=== PATIENT | female | born 2000 | race Caucasian/White ===

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

== ENCOUNTER 2019-01-04 11:49 | Outpatient (CLI) | payer OTHER | END 2019-01-04 12:33 | disposition home or self-care (01) | LOC: ORTHO 11:49 | PROVIDERS: ATTEND Orthopaedic Surgery | DX: S99.921A Unspecified injury of right foot, initial encounter (principal); X58.XXXA Exposure to other specified factors, initial encounter; Y93.89 Activity, other specified; Y92.89 Other specified places as the place of occurrence of the external cause; Y99.8 Other external cause status | CPT/HCPCS: 73630; G0463 ==

== ENCOUNTER 2019-04-22 02:45 | Emergency (ER) | payer OTHER ==
[~2019-04-22] VITALS: Ht 162.6 cm; Wt 65.0 kg
[2019-04-22 02:49] VITALS: BP 144/86
[2019-04-22 03:04] LABS: URINE HCG NEGATIVE (NEG)
[2019-04-22 03:05] LABS: CLARITY,URINE SLIGHTLY CLOUDY (Clear); COLOR,URINE YELLOW (Yellow); GLUCOSE, URINE NEGATIVE (Neg); KETONES,URINE NEGATIVE (Neg); LEUKOCYTE ESTERASE ,URINE SMALL (Neg); NITRITES, URINE NEGATIVE (Neg); OCCULT BLOOD,URINE SMALL (Neg); PROTEIN,URINE NEGATIVE (Neg)
[2019-04-22 03:14] LABS: MUCUS STRANDS MODERATE /LPF (Neg); SQUAMOUS EPITHELIAL CELL,UR MODERATE /LPF (FEW); UA COLLECTION TYPE CLN CATCH MIDSTREAM
[2019-04-22 03:15] LABS: BACTERIA,URINE FEW /HPF (Neg); RBC,URINE 0-2 /HPF (0-2); TRANSITIONAL EPI CELLS,URINE FEW /HPF
[2019-04-22] MEDS ORDERED: phenazopyridine 100mg tablet PO ONE (03:20)
[2019-04-22] MEDS ORDERED: cephalexin 250mg capsule PO ONE (03:20)
[2019-04-22] MEDS ORDERED: CEPH500C5 PO (03:32)
[2019-04-22] MEDS ORDERED: PHEN-786 PO (03:32)
== END 2019-04-22 03:53 | disposition home or self-care (01) ==
LOC: ER 02:45
DX: N39.0 Urinary tract infection, site not specified (principal); M19.90 Unspecified osteoarthritis, unspecified site; F41.9 Anxiety disorder, unspecified; Z86.69 Personal history of other diseases of the nervous system and sense organs; Z79.2 Long term (current) use of antibiotics; Z79.899 Other long term (current) drug therapy
CPT/HCPCS: 81001; 81025; 87088; 99283

== ENCOUNTER 2019-08-21 20:57 | Outpatient (CLI) | payer OTHER ==
[~2019-08-21 20:57] MED LIST changes: +CEPH500C5 PO; +PHEN-786 PO
== END 2019-08-21 23:59 | disposition home or self-care (01) ==
LOC: LAB 20:57
PROVIDERS: ATTEND Family Medicine
DX: N30.90 Cystitis, unspecified without hematuria (principal); R11.0 Nausea
CPT/HCPCS: 36415; 84702

== ENCOUNTER 2019-09-03 04:24 | Emergency (ER) | payer OTHER ==
[~2019-09-03] VITALS: Ht 162.6 cm; Wt 61.4 kg
[2019-09-03] MEDS ORDERED: ondansetron 4mg rapidly disintigrating tab PO ONE (04:30)
[2019-09-03] MEDS ORDERED: ketorolac trometh inj. 60 MG/2 ML VIAL IM ONE (04:30)
[2019-09-03 05:03] LABS: BASOPHILS # (AUTO) 0.1 X10'3 (0-0.2); BASOPHILS % (AUTO) 0.5 % (0-1); EOSINOPHILS # (AUTO) 0.2 X10'3 (0-0.9); EOSINOPHILS % (AUTO) 2.1 % (0-6); HEMOGLOBIN 14.6 g/dl (12.0-16.0); LYMPHOCYTES # (AUTO) 3.6 X10'3 (1.1-4.8); LYMPHOCYTES % (AUTO) 31.4 % (21-51); MEAN CORPUSCULAR HEMOGLOBIN 29.3 PG (27.0-31.0); MEAN CORPUSCULAR HGB CONC 33.9 g/dL (33.0-36.5); MEAN CORPUSCULAR VOLUME 86.4 FL (78-98); MEAN PLATELET VOLUME 7.2 FL (7.4-10.4); MONOCYTES # (AUTO) 0.9 X10'3 (0-0.9); NEUTROPHILS # (AUTO) 6.6 X10'3 (1.8-7.7); PLATELET COUNT 420 X10'3 (140-440); RED BLOOD COUNT 4.97 X10'6 (4.20-5.60); RED CELL DISTRIBUTION WIDTH 13.5 % (11.5-14.5); URINE HCG NEGATIVE (NEG); WHITE BLOOD COUNT 11.4 X10'3 (4.5-11.0)
[2019-09-03 05:24] LABS: CLARITY,URINE CLEAR (Clear); COLOR,URINE YELLOW (Yellow); GLUCOSE, URINE NEGATIVE (Neg); KETONES,URINE NEGATIVE (Neg); LEUKOCYTE ESTERASE ,URINE NEGATIVE (Neg); NITRITES, URINE NEGATIVE (Neg); OCCULT BLOOD,URINE NEGATIVE (Neg); PROTEIN,URINE NEGATIVE (Neg); UROBILINOGEN,URINE 0.2 E.U/dL (0.2-1.0)
[2019-09-03] MEDS ORDERED: mag hydrox/Alum hydrox/simeth 30ml oral suspension PO ONE (05:25)
[2019-09-03] MEDS ORDERED: LIDOcaine Viscous 15ml cup MM ONE (05:25)
[2019-09-03] MEDS ORDERED: famotidine 20mg tablet PO ONE (05:25)
[2019-09-03 05:26] LABS: ALANINE AMINOTRANSFERASE 21 U/L (12-78); ALBUMIN 4.9 G/DL (3.4-5.0); ALBUMIN/GLOBULIN RATIO 1.2 (1.1-1.5); ANION GAP 9 (8-16); ASPARTATE AMINO TRANSFERASE 18 U/L (10-37); BILIRUBIN,TOTAL 0.3 MG/DL (0.1-1.0); BLOOD UREA NITROGEN 7 MG/DL (7-18); BUN/CREATININE RATIO 8.6 (6.6-38.0); CALCIUM 9.5 MG/DL (8.5-10.1); CHLORIDE 103 MMOL/L (99-107); CREATININE 0.81 MG/DL (0.40-0.90); GLUCOSE 89 MG/DL (70-104); POTASSIUM 3.4 MMOL/L (3.5-5.1); SODIUM 143 MMOL/L (135-145); TOTAL CARBON DIOXIDE 31.1 MMOL/L (24-32); TOTAL PROTEIN 9.1 G/DL (6.4-8.2); eGFR 90 ML/MIN
[2019-09-03 05:27] LABS: ALKALINE PHOSPHATASE 77 IU/L (20-180); MAGNESIUM 2.4 MG/DL (1.5-2.4)
[2019-09-03 05:31] LABS: UA COLLECTION TYPE CLN CATCH MIDSTREAM
[2019-09-03 05:52] VITALS: BP 127/83
== END 2019-09-03 05:58 | disposition home or self-care (01) ==
LOC: ER 04:25 → EEVIPCON 04:25 → ER 05:58
DX: R07.89 Other chest pain (principal); R06.02 Shortness of breath; R11.0 Nausea; M19.90 Unspecified osteoarthritis, unspecified site; F41.9 Anxiety disorder, unspecified; Z86.69 Personal history of other diseases of the nervous system and sense organs; Z79.899 Other long term (current) drug therapy
CPT/HCPCS: 36415; 71045; 80053; 81003; 81025; 83735; 84484; 85025; 93005; 96372; 99285; J1885

== ENCOUNTER 2019-09-10 20:43 | Emergency (ER) | payer OTHER ==
[~2019-09-10] VITALS: Ht 162.6 cm; Wt 61.4 kg
[2019-09-10] MEDS ORDERED: ketorolac trometh. 30mg/ml inj. IM ONE (21:10)
[2019-09-10] MEDS ORDERED: IBUP-1985 PO (21:16)
[2019-09-10 21:30] VITALS: BP 125/52
== END 2019-09-10 21:31 | disposition home or self-care (01) ==
LOC: ER 20:45 → EEVIPCON 20:45 → ER 21:31
DX: S43.51XA Sprain of right acromioclavicular joint, initial encounter (principal); M06.9 Rheumatoid arthritis, unspecified; Z79.899 Other long term (current) drug therapy; W18.30XA Fall on same level, unspecified, initial encounter; Y93.89 Activity, other specified; Y92.89 Other specified places as the place of occurrence of the external cause; Y99.9 Unspecified external cause status
CPT/HCPCS: 73030; 96372; 99283; J1885

== ENCOUNTER 2019-12-01 02:46 | Emergency (ER) | payer OTHER ==
[~2019-12-01] VITALS: Ht 162.6 cm; Wt 63.6 kg
[~2019-12-01 02:46] MED LIST changes: +IBUP-1985 PO
[2019-12-01] MEDS ORDERED: ondansetron/PF 4mg/2ml inj IV ONE (02:55)
[2019-12-01] MEDS ORDERED: normal saline 1000ML IV soln IVB ONE (02:55)
[2019-12-01] MEDS: morphine 4 MG/ML inj SYRINge IV PRN ×2 (03:06→05:00)
[2019-12-01 03:11] LABS: BASOPHILS % (AUTO) 0.4 % (0-1); EOSINOPHILS # (AUTO) 0.1 X10'3 (0-0.9); EOSINOPHILS % (AUTO) 1.2 % (0-6); LYMPHOCYTES # (AUTO) 2.8 X10'3 (1.1-4.8); LYMPHOCYTES % (AUTO) 25.1 % (21-51); MEAN CORPUSCULAR HEMOGLOBIN 29.8 PG (27.0-31.0); MEAN CORPUSCULAR HGB CONC 33.5 g/dL (33.0-36.5); MEAN CORPUSCULAR VOLUME 89.1 FL (78-98); MEAN PLATELET VOLUME 7.3 FL (7.4-10.4); MONOCYTES # (AUTO) 0.7 X10'3 (0-0.9); MONOCYTES % (AUTO) 6.8 % (2-12); NEUTROPHILS # (AUTO) 7.3 X10'3 (1.8-7.7); NEUTROPHILS % (AUTO) 66.5 % (42-75); PLATELET COUNT 367 X10'3 (140-440); RED BLOOD COUNT 4.38 X10'6 (4.20-5.60); RED CELL DISTRIBUTION WIDTH 12.9 % (11.5-14.5)
[2019-12-01 03:21] LABS: ALANINE AMINOTRANSFERASE 21 U/L (12-78); ALBUMIN 4.3 G/DL (3.4-5.0); ALBUMIN/GLOBULIN RATIO 1.2 (1.1-1.5); ALKALINE PHOSPHATASE 56 IU/L (20-180); ANION GAP 5 (8-16); ASPARTATE AMINO TRANSFERASE 14 U/L (10-37); BILIRUBIN,TOTAL 0.4 MG/DL (0.1-1.0); BLOOD UREA NITROGEN 11 MG/DL (7-18); BUN/CREATININE RATIO 10.7 (6.6-38.0); CHLORIDE 106 MMOL/L (99-107); CREATININE 1.03 MG/DL (0.40-0.90); GLUCOSE 86 MG/DL (70-104); LIPASE 106 U/L (73-393); POTASSIUM 3.5 MMOL/L (3.5-5.1); SODIUM 142 MMOL/L (135-145); TOTAL CARBON DIOXIDE 30.9 MMOL/L (24-32); TOTAL PROTEIN 7.8 G/DL (6.4-8.2); eGFR 68 ML/MIN
[2019-12-01 03:47] LABS: URINE HCG NEGATIVE (NEG)
[2019-12-01 03:53] LABS: CLARITY,URINE SLIGHTLY CLOUDY (Clear); COLOR,URINE YELLOW (Yellow); GLUCOSE, URINE NEGATIVE (Neg); KETONES,URINE NEGATIVE (Neg); LEUKOCYTE ESTERASE ,URINE TRACE (Neg); NITRITES, URINE NEGATIVE (Neg); OCCULT BLOOD,URINE NEGATIVE (Neg); PROTEIN,URINE NEGATIVE (Neg); UA COLLECTION TYPE CLN CATCH MIDSTREAM; UROBILINOGEN,URINE 0.2 E.U/dL (0.2-1.0)
[2019-12-01 03:57] LABS: BACTERIA,URINE 2+ /HPF (Neg); RBC,URINE NONE SEEN /HPF (0-2); SQUAMOUS EPITHELIAL CELL,UR MODERATE /LPF (FEW); WBC,URINE 0-4 /HPF (0-4)
[2019-12-01] MEDS ORDERED: ONDA4TAB6 PO (04:37)
[2019-12-01] MEDS ORDERED: HYDR-3965 PO (04:37)
[2019-12-01] MEDS ORDERED: DICY10CA88 PO (04:43)
[2019-12-01 05:05] VITALS: BP 110/76
[2019-12-01] MEDS ORDERED: ondansetron 4mg rapidly disintigrating tab PO ONE (06:40)
[2019-12-01] MEDS ORDERED: CefTRIAXone 250MG IM Kit w/LIDOcaine IM ONE (07:05)
[2019-12-01] MEDS ORDERED: azithromycin 250mg tablet PO ONE (07:05)
[2019-12-01] MEDS ORDERED: IBUP-1984 PO (23:58)
== END 2019-12-01 08:01 | disposition home or self-care (01) ==
LOC: ER 02:46
DX: R10.31 Right lower quadrant pain (principal); R11.2 Nausea with vomiting, unspecified; M19.90 Unspecified osteoarthritis, unspecified site; F41.9 Anxiety disorder, unspecified; F32.9 Major depressive disorder, single episode, unspecified; M06.9 Rheumatoid arthritis, unspecified; Z86.69 Personal history of other diseases of the nervous system and sense organs; Z79.899 Other long term (current) drug therapy
CPT/HCPCS: 36415; 74176; 80053; 81001; 81025; 83690; 85025; 87088; 87491; 87591; 96372; 96374; 96375; 96376; 99285; J0696; J2270; J2405; J7030

== ENCOUNTER 2019-12-01 21:37 | Emergency (ER) | payer OTHER ==
[~2019-12-01] VITALS: Ht 162.6 cm; Wt 59.1 kg
[~2019-12-01 21:37] MED LIST changes: +DICY10CA88 PO; +HYDR-3965 PO
[2019-12-01] MEDS ORDERED: morphine 4 MG/ML inj SYRINge IV ONE (22:25)
[2019-12-01] MEDS ORDERED: ondansetron/PF 4mg/2ml inj IV ONE (22:25)
[2019-12-01 22:30] LABS: BASOPHILS % (AUTO) 0.5 % (0-1); EOSINOPHILS # (AUTO) 0.1 X10'3 (0-0.9); EOSINOPHILS % (AUTO) 1.4 % (0-6); HEMATOCRIT 36.2 % (35.0-45.0); HEMOGLOBIN 12.2 g/dl (12.0-16.0); LYMPHOCYTES # (AUTO) 2.4 X10'3 (1.1-4.8); LYMPHOCYTES % (AUTO) 28.4 % (21-51); MEAN CORPUSCULAR HEMOGLOBIN 29.9 PG (27.0-31.0); MEAN CORPUSCULAR HGB CONC 33.7 g/dL (33.0-36.5); MEAN CORPUSCULAR VOLUME 88.7 FL (78-98); MEAN PLATELET VOLUME 7.2 FL (7.4-10.4); MONOCYTES # (AUTO) 0.5 X10'3 (0-0.9); MONOCYTES % (AUTO) 5.5 % (2-12); NEUTROPHILS # (AUTO) 5.4 X10'3 (1.8-7.7); NEUTROPHILS % (AUTO) 64.2 % (42-75); PLATELET COUNT 294 X10'3 (140-440); RED BLOOD COUNT 4.08 X10'6 (4.20-5.60); RED CELL DISTRIBUTION WIDTH 13.2 % (11.5-14.5); WHITE BLOOD COUNT 8.4 X10'3 (4.5-11.0)
[2019-12-01 22:39] LABS: ALANINE AMINOTRANSFERASE 18 U/L (12-78); ALBUMIN 3.6 G/DL (3.4-5.0); ALBUMIN/GLOBULIN RATIO 1.2 (1.1-1.5); ALKALINE PHOSPHATASE 44 IU/L (20-180); ANION GAP 6 (8-16); ASPARTATE AMINO TRANSFERASE 15 U/L (10-37); BILIRUBIN,TOTAL 0.6 MG/DL (0.1-1.0); BLOOD UREA NITROGEN 7 MG/DL (7-18); BUN/CREATININE RATIO 7.1 (6.6-38.0); C-REACTIVE PROTEIN 0.18 MG/DL (0.0-0.5); CALCIUM 8.7 MG/DL (8.5-10.1); CHLORIDE 107 MMOL/L (99-107); CREATININE 0.99 MG/DL (0.40-0.90); GLUCOSE 81 MG/DL (70-104); LIPASE 54 U/L (73-393); SODIUM 143 MMOL/L (135-145); TOTAL CARBON DIOXIDE 30.3 MMOL/L (24-32); TOTAL PROTEIN 6.7 G/DL (6.4-8.2); eGFR 72 ML/MIN
[2019-12-01] MEDS ORDERED: normal saline 1000ml 1,000 ML IV ONE (22:45)
[2019-12-01] MEDS ORDERED: IBUP-1984 PO (23:58)
[2019-12-02 00:27] VITALS: BP 118/78
== END 2019-12-02 00:29 | disposition home or self-care (01) ==
LOC: EEVIPCON 21:38 → ER 21:38
DX: R10.31 Right lower quadrant pain (principal); R11.10 Vomiting, unspecified; R19.7 Diarrhea, unspecified; M19.90 Unspecified osteoarthritis, unspecified site; F41.9 Anxiety disorder, unspecified; F32.9 Major depressive disorder, single episode, unspecified; Z86.69 Personal history of other diseases of the nervous system and sense organs; Z79.2 Long term (current) use of antibiotics; Z79.899 Other long term (current) drug therapy
CPT/HCPCS: 36415; 76705; 76856; 80053; 83690; 85025; 86140; 93976; 96374; 96375; 99285; J2270; J2405; J7030

== ENCOUNTER 2019-12-12 12:35 | Outpatient (CLI) | payer OTHER ==
[2019-12-12 13:24] LABS: BASOPHILS % (AUTO) 0.5 % (0-1); EOSINOPHILS # (AUTO) 0.1 X10'3 (0-0.9); EOSINOPHILS % (AUTO) 1.1 % (0-6); HEMATOCRIT 40.2 % (35.0-45.0); HEMOGLOBIN 13.3 g/dl (12.0-16.0); LYMPHOCYTES # (AUTO) 1.9 X10'3 (1.1-4.8); LYMPHOCYTES % (AUTO) 21.5 % (21-51); MEAN CORPUSCULAR HEMOGLOBIN 29.3 PG (27.0-31.0); MEAN CORPUSCULAR VOLUME 88.9 FL (78-98); MEAN PLATELET VOLUME 7.9 FL (7.4-10.4); MONOCYTES # (AUTO) 0.5 X10'3 (0-0.9); MONOCYTES % (AUTO) 5.3 % (2-12); NEUTROPHILS # (AUTO) 6.3 X10'3 (1.8-7.7); NEUTROPHILS % (AUTO) 71.6 % (42-75); PLATELET COUNT 297 X10'3 (140-440); RED BLOOD COUNT 4.52 X10'6 (4.20-5.60); RED CELL DISTRIBUTION WIDTH 13.1 % (11.5-14.5); WHITE BLOOD COUNT 8.8 X10'3 (4.5-11.0)
[2019-12-12 13:38] LABS: ALANINE AMINOTRANSFERASE 17 U/L (12-78); ALBUMIN 4.3 G/DL (3.4-5.0); ALBUMIN/GLOBULIN RATIO 1.2 (1.1-1.5); ALKALINE PHOSPHATASE 43 IU/L (20-180); ANION GAP 11 (8-16); ASPARTATE AMINO TRANSFERASE 14 U/L (10-37); BILIRUBIN,TOTAL 0.6 MG/DL (0.1-1.0); BLOOD UREA NITROGEN 16 MG/DL (7-18); BUN/CREATININE RATIO 18.2 (6.6-38.0); CALCIUM 8.8 MG/DL (8.5-10.1); CHLORIDE 105 MMOL/L (99-107); CREATININE 0.88 MG/DL (0.40-0.90); GLUCOSE 75 MG/DL (70-104); POTASSIUM 3.9 MMOL/L (3.5-5.1); SODIUM 141 MMOL/L (135-145); TOTAL CARBON DIOXIDE 24.6 MMOL/L (24-32); TOTAL PROTEIN 7.8 G/DL (6.4-8.2); eGFR 82 ML/MIN
[2019-12-12 16:10] LABS: HIV ANTIBODY 1&2 RAPID NON-REACTIVE (Neg)
[2019-12-14 11:34] LABS: RPR Non Reactive (Non Reactive)
[2019-12-14 12:09] LABS: HEPATITIS C ANTIBODY <0.1 s/co ratio (0.0-0.9)
[2019-12-14 19:22] LABS: ANTINUCLEAR ANTIBODIES Negative (Negative)
== END 2019-12-12 23:59 | disposition home or self-care (01) ==
LOC: LAB 12:35
PROVIDERS: ATTEND Obstetrics & Gynecology
DX: N73.0 Acute parametritis and pelvic cellulitis (principal)
CPT/HCPCS: 36415; 80053; 85025; 86038; 86592; 86695; 86696; 86703; 86706; 86803

== ENCOUNTER 2019-12-28 05:52 | Emergency (ER) | payer BC ==
[~2019-12-28] VITALS: Ht 162.6 cm; Wt 70.5 kg
[2019-12-28] VITALS (16 sets, daily range): BP systolic 105–129; BP diastolic 68–94
[2019-12-28] MEDS ORDERED: ondansetron/PF 4mg/2ml inj IV ONE (06:05)
[2019-12-28] MEDS ORDERED: normal saline 1000ML IV soln IVB ONE (06:05)
[2019-12-28] MEDS: morphine 4 MG/ML inj SYRINge IV PRN ×2 (06:16→10:13)
[2019-12-28 06:33] LABS: BASOPHILS # (AUTO) 0.1 X10'3 (0-0.2); BASOPHILS % (AUTO) 0.7 % (0-1); EOSINOPHILS # (AUTO) 0.1 X10'3 (0-0.9); EOSINOPHILS % (AUTO) 1.5 % (0-6); HEMOGLOBIN 13.1 g/dl (12.0-16.0); LYMPHOCYTES # (AUTO) 2.8 X10'3 (1.1-4.8); MEAN CORPUSCULAR HEMOGLOBIN 29.7 PG (27.0-31.0); MEAN CORPUSCULAR HGB CONC 33.6 g/dL (33.0-36.5); MEAN CORPUSCULAR VOLUME 88.4 FL (78-98); MEAN PLATELET VOLUME 7.5 FL (7.4-10.4); MONOCYTES # (AUTO) 0.6 X10'3 (0-0.9); MONOCYTES % (AUTO) 7.4 % (2-12); NEUTROPHILS # (AUTO) 4.4 X10'3 (1.8-7.7); NEUTROPHILS % (AUTO) 55.4 % (42-75); PLATELET COUNT 329 X10'3 (140-440); RED BLOOD COUNT 4.42 X10'6 (4.20-5.60); RED CELL DISTRIBUTION WIDTH 12.9 % (11.5-14.5); WHITE BLOOD COUNT 7.9 X10'3 (4.5-11.0)
[2019-12-28] MEDS ORDERED: normal saline 1000ml 1,000 ML IV ONE (06:48)
[2019-12-28 06:50] LABS: ALANINE AMINOTRANSFERASE 15 U/L (12-78); ALBUMIN 4.2 G/DL (3.4-5.0); ALBUMIN/GLOBULIN RATIO 1.1 (1.1-1.5); ALKALINE PHOSPHATASE 41 IU/L (20-180); ANION GAP 10 (8-16); ASPARTATE AMINO TRANSFERASE 12 U/L (10-37); BILIRUBIN,TOTAL 0.5 MG/DL (0.1-1.0); BLOOD UREA NITROGEN 11 MG/DL (7-18); CALCIUM 8.5 MG/DL (8.5-10.1); CHLORIDE 107 MMOL/L (99-107); GLUCOSE 87 MG/DL (70-104); POTASSIUM 3.3 MMOL/L (3.5-5.1); SODIUM 142 MMOL/L (135-145); TOTAL CARBON DIOXIDE 24.7 MMOL/L (24-32); TOTAL PROTEIN 7.9 G/DL (6.4-8.2); eGFR 71 ML/MIN
[2019-12-28 07:10] LABS: URINE HCG NEGATIVE (NEG)
[2019-12-28 07:13] LABS: CLARITY,URINE CLEAR (Clear); COLOR,URINE YELLOW (Yellow); GLUCOSE, URINE NEGATIVE (Neg); KETONES,URINE NEGATIVE (Neg); LEUKOCYTE ESTERASE ,URINE NEGATIVE (Neg); NITRITES, URINE NEGATIVE (Neg); OCCULT BLOOD,URINE NEGATIVE (Neg); PROTEIN,URINE TRACE mg/dl (Neg); UROBILINOGEN,URINE 0.2 E.U/dL (0.2-1.0)
[2019-12-28 07:14] LABS: UA COLLECTION TYPE CLN CATCH MIDSTREAM
[2019-12-28 07:16] LABS: MUCUS STRANDS MODERATE /LPF (Neg); SQUAMOUS EPITHELIAL CELL,UR MODERATE /LPF (FEW)
[2019-12-28 07:17] LABS: BACTERIA,URINE 1+ /HPF (Neg); RBC,URINE 0-2 /HPF (0-2); WBC,URINE 0-4 /HPF (0-4)
[2019-12-28] MEDS ORDERED: fentaNYL/PF 50MCG/1 ML 2ML syringe IV ONE (10:10)
[2019-12-28] MEDS ORDERED: ringers solution, lacted 1,000 ML IV SCH (10:16)
[2019-12-28] MEDS ORDERED: ringers solution, lacted 1,000 ML IV ONE (10:16)
[2019-12-28] MEDS ORDERED: HYDROmorphone inj. 0.5 MG/0.5 ML DISP.SYRIN IV PRN (10:20)
[2019-12-28] MEDS ORDERED: labetalol 20mg/4ml (5mg/ml) syringe IV PRN (10:20)
[2019-12-28] MEDS ORDERED: ondansetron/PF 4mg/2ml inj IV PRN (10:20)
[2019-12-28] MEDS ORDERED: acetaminophen 1,000mg/100ml IV 100 ML IV PRN (10:20)
[2019-12-28] MEDS ORDERED: meperidine/PF 25mg/ml syringe IV PRN (10:20)
[2019-12-28] MEDS ORDERED: ketorolac trometh. 30mg/ml inj. IV ONE (10:20)
[2019-12-28] MEDS ORDERED: hydrALAZINE 20mg/ml inj. IV PRN (10:20)
[2019-12-28] MEDS ORDERED: BUPIVAcaine/PF 2.5 mg/ml (0.25%) 30ml vial ONE (10:24)
[2019-12-28] MEDS ORDERED: midazolam 2 mg/2 ml injection ONE (10:51)
[2019-12-28] MEDS ORDERED: fentaNYL/PF 50MCG/1 ML 2ML syringe ONE (10:51)
[2019-12-28] MEDS ORDERED: propofol inj 20 ML IV ONE (10:52)
[2019-12-28] MEDS ORDERED: LIDOcaine 2% (20mg/ml) 5ml vial ONE (10:52)
[2019-12-28] MEDS ORDERED: neostigmine methylsulfate 1 MG/ML 10ml vial ONE (10:57)
[2019-12-28] MEDS ORDERED: naloxone 0.4 mg/ml inj ONE (10:57)
[2019-12-28] MEDS ORDERED: rocuronium 10mg/ml inj IV ONE (10:57)
[2019-12-28] MEDS ORDERED: sevoflurane 250ml liquid IH ONE (10:57)
[2019-12-28] MEDS ORDERED: dexamethasone sod phosphate 4mg/ml inj. ONE (11:10)
[2019-12-28] MEDS ORDERED: verapamil 2.5 mg/ml inj IV ONE (11:11)
[2019-12-28] MEDS ORDERED: ceFAZolin 1000mg inj ONE ×2 (11:11)
[2019-12-28] MEDS ORDERED: ondansetron/PF 4mg/2ml inj ONE (11:12)
[2019-12-28] MEDS ORDERED: glycopyrrolate 0.2mg/ml inj ONE (12:00)
[2019-12-28] MEDS: fentaNYL/PF 50MCG/1 ML 2ML syringe IV PRN ×4 (12:40→13:47)
--- NOTE | 2019-12-28 13:19 | NUR ---
RECEIVED VIA GURNEY FROM OR ACCOMPANIED BY ANESTHESIOLOGIST DR DOMINGUEZ, REPORT GIVEN. 20 GAUGE PIV R AC PATENT AND RUNNING LR AT 100 ML/HR. LG BANDAIDS X3 TO ABD CDI, MAURICE PAD WITH SCANT DRAINAGE. SKIN WARM AND PINK, ABD SOFT, VSS STABLE. RESTING COMFORTABLY AND DENIES PAIN AT THIS TIME.
[2019-12-28] MEDS: HYDROmorphone inj. 0.5 MG/0.5 ML DISP.SYRIN IV PRN ×3 (13:29→13:45)
--- NOTE | 2019-12-28 14:54 | NUR ---
TOLERATING FLUIDS, ABLE TO DRESS SELF, AMBULATE AND VOID. 20 GAUGE PIV R FA DC/D CATH TIP INTACT. LG BANDAIDS X3 TO ABD CDI, MAURICE PAD WITH SCANT DRAINAGE. SKIN WARM AND PINK, ABD SOFT, VSS STABLE. PAIN LEVEL AT 5. DISCHARGE INSTRUCTIONS GIVEN AND PT VERBALIZED UNDERSTANDING, TRANSPORTED VIA WHEELCHAIR TO MOTHER TO HOME.
== END 2019-12-28 14:54 | disposition home or self-care (01) ==
LOC: ER 05:53
PROC: 0U5B4ZZ Destruction of Endometrium, Percutaneous Endoscopic Approach (ICD-10-PCS; 2019-12-28)
PROC: 0WBN4ZX Excision of Female Perineum, Percutaneous Endoscopic Approach, Diagnostic (ICD-10-PCS; principal; 2019-12-28 10:57)
DX: R10.30 Lower abdominal pain, unspecified (principal); N80.3 Endometriosis of pelvic peritoneum; M06.9 Rheumatoid arthritis, unspecified; M19.90 Unspecified osteoarthritis, unspecified site; F41.9 Anxiety disorder, unspecified; F32.9 Major depressive disorder, single episode, unspecified; Z86.69 Personal history of other diseases of the nervous system and sense organs; Z79.2 Long term (current) use of antibiotics; Z79.899 Other long term (current) drug therapy
CPT/HCPCS: 36415; 49321; 58662; 80053; 81001; 81025; 85025; 96374; 96375; 96376; 99285; C1758; J0131; J0690; J1100; J1170; J1885; J2001; J2250; J2270; J2310; J2405; J2704; J2710; J3010; J3490; J7030; J7120; 96365; A4618; A7000

== ENCOUNTER 2020-04-02 21:09 | Emergency (ER) | payer BC ==
[~2020-04-02] VITALS: Ht 162.6 cm; Wt 54.5 kg
[~2020-04-02 21:09] MED LIST changes: -DICY10CA88 PO; -HYDR-3965 PO
[2020-04-02] MEDS ORDERED: normal saline 1000ML IV soln IVB ONE (21:45)
[2020-04-02] MEDS ORDERED: ondansetron/PF 4mg/2ml inj ONE (22:08)
[2020-04-02 22:15] LABS: EOSINOPHILS # (AUTO) 0.1 X10'3 (0-0.9); HEMOGLOBIN 13.7 g/dl (12.0-16.0); MEAN PLATELET VOLUME 7.3 FL (7.4-10.4)
[2020-04-02 22:17] LABS: BASOPHILS # (AUTO) 0.1 X10'3 (0-0.2); BASOPHILS % (AUTO) 0.8 % (0-1); EOSINOPHILS % (AUTO) 0.8 % (0-6); HEMATOCRIT 40.2 % (35.0-45.0); LYMPHOCYTES # (AUTO) 2.3 X10'3 (1.1-4.8); LYMPHOCYTES % (AUTO) 23.5 % (21-51); MEAN CORPUSCULAR HEMOGLOBIN 30.1 PG (27.0-31.0); MEAN CORPUSCULAR VOLUME 88.5 FL (78-98); MONOCYTES # (AUTO) 0.6 X10'3 (0-0.9); MONOCYTES % (AUTO) 6.2 % (2-12); NEUTROPHILS # (AUTO) 6.7 X10'3 (1.8-7.7); NEUTROPHILS % (AUTO) 68.7 % (42-75); PLATELET COUNT 330 X10'3 (140-440); RED BLOOD COUNT 4.54 X10'6 (4.20-5.60); WHITE BLOOD COUNT 9.7 X10'3 (4.5-11.0)
[2020-04-02 22:29] LABS: ALANINE AMINOTRANSFERASE 14 U/L (12-78); ALBUMIN 4.1 G/DL (3.4-5.0); ALBUMIN/GLOBULIN RATIO 1.1 (1.1-1.5); ALKALINE PHOSPHATASE 51 IU/L (20-180); ANION GAP 12 (8-16); ASPARTATE AMINO TRANSFERASE 13 U/L (10-37); BILIRUBIN,TOTAL 0.7 MG/DL (0.1-1.0); BLOOD UREA NITROGEN 12 MG/DL (7-18); BUN/CREATININE RATIO 14.6 (6.6-38.0); CALCIUM 9.3 MG/DL (8.5-10.1); CHLORIDE 105 MMOL/L (99-107); CREATININE 0.82 MG/DL (0.40-0.90); GLUCOSE 97 MG/DL (70-104); POTASSIUM 3.7 MMOL/L (3.5-5.1); SODIUM 141 MMOL/L (135-145); TOTAL CARBON DIOXIDE 24.4 MMOL/L (24-32); TOTAL PROTEIN 7.8 G/DL (6.4-8.2); eGFR 89 ML/MIN
[2020-04-02] MEDS ORDERED: ondansetron/PF 4mg/2ml inj IV ONE (22:30)
[2020-04-02 23:00] LABS: D-DIMER < 0.19 MG/L FEU (0-0.50)
[2020-04-02] MEDS ORDERED: ketorolac trometh. 30mg/ml inj. IV ONE (23:10)
[2020-04-02 23:24] VITALS: BP 116/82
== END 2020-04-02 23:28 | disposition home or self-care (01) ==
LOC: ER 21:10
DX: R07.89 Other chest pain (principal); R55 Syncope and collapse; M06.9 Rheumatoid arthritis, unspecified; Z91.018 Allergy to other foods; Z79.899 Other long term (current) drug therapy
CPT/HCPCS: 36415; 71045; 80053; 85025; 85379; 93005; 96361; 96374; 96375; 96376; 99285; J1885; J2405; J7030

== ENCOUNTER 2020-04-15 21:52 | Emergency (ER) | payer BC ==
[~2020-04-15] VITALS: Ht 162.6 cm; Wt 54.0 kg
[2020-04-15 21:58] VITALS: BP 110/83
== END 2020-04-15 23:42 | disposition home or self-care (01) ==
LOC: ER 21:53
DX: J06.9 Acute upper respiratory infection, unspecified (principal); R05 Cough; J34.89 Other specified disorders of nose and nasal sinuses; R43.8 Other disturbances of smell and taste; Z20.828 Contact with and (suspected) exposure to other viral communicable diseases; M19.90 Unspecified osteoarthritis, unspecified site; F41.9 Anxiety disorder, unspecified; F32.9 Major depressive disorder, single episode, unspecified; F17.210 Nicotine dependence, cigarettes, uncomplicated; Z86.69 Personal history of other diseases of the nervous system and sense organs; Z79.2 Long term (current) use of antibiotics; Z79.899 Other long term (current) drug therapy
CPT/HCPCS: 87635; 99283; C9803

== ENCOUNTER 2020-04-18 22:53 | Emergency (ER) | payer BC ==
[~2020-04-18] VITALS: Ht 160 cm; Wt 54.5 kg
[2020-04-18 23:05] VITALS: BP 174/88
== END 2020-04-18 23:55 | disposition home or self-care (01) ==
LOC: ER 22:54
DX: B34.9 Viral infection, unspecified (principal); R06.02 Shortness of breath; R05 Cough; R50.9 Fever, unspecified; R51.9 Headache, unspecified; Z20.828 Contact with and (suspected) exposure to other viral communicable diseases; M19.90 Unspecified osteoarthritis, unspecified site; F41.9 Anxiety disorder, unspecified; F32.9 Major depressive disorder, single episode, unspecified; Z86.69 Personal history of other diseases of the nervous system and sense organs; Z79.2 Long term (current) use of antibiotics; Z79.899 Other long term (current) drug therapy
CPT/HCPCS: 71045; 87635; 99284; C9803

== ENCOUNTER 2020-05-19 20:43 | Emergency (ER) | payer BC ==
[~2020-05-19] VITALS: Ht 162.6 cm; Wt 62.5 kg
[~2020-05-19 20:43] MED LIST changes: -CEPH500C5 PO
[2020-05-19 20:44] VITALS: BP 135/82
[2020-05-19] MEDS ORDERED: ketorolac tromethamine 15mg/ml inj. IM ONE (21:45)
== END 2020-05-19 22:28 | disposition home or self-care (01) ==
LOC: ER 20:44
DX: S93.491A Sprain of other ligament of right ankle, initial encounter (principal); X50.9XXA Other and unspecified overexertion or strenuous movements or postures, initial encounter; Y93.89 Activity, other specified; Y92.89 Other specified places as the place of occurrence of the external cause; Y99.8 Other external cause status; F41.9 Anxiety disorder, unspecified; F32.9 Major depressive disorder, single episode, unspecified; Z91.018 Allergy to other foods; Z79.899 Other long term (current) drug therapy
CPT/HCPCS: 73610; 96372; 99283; J1885

== ENCOUNTER 2020-06-01 11:55 | Outpatient (CLI) | payer BC ==
[2020-06-01 12:27] LABS: BASOPHILS # (AUTO) 0.1 X10'3 (0-0.2); BASOPHILS % (AUTO) 0.6 % (0-1); CLARITY,URINE CLOUDY (Clear); COLOR,URINE YELLOW (Yellow); EOSINOPHILS # (AUTO) 0.1 X10'3 (0-0.9); EOSINOPHILS % (AUTO) 1.6 % (0-6); GLUCOSE, URINE NEGATIVE (Neg); HEMATOCRIT 41.9 % (35.0-45.0); HEMOGLOBIN 14.2 g/dl (12.0-16.0); KETONES,URINE 40 mg/dl (Neg); LEUKOCYTE ESTERASE ,URINE NEGATIVE (Neg); LYMPHOCYTES % (AUTO) 22.2 % (21-51); MEAN CORPUSCULAR HEMOGLOBIN 29.9 PG (27.0-31.0); MEAN CORPUSCULAR HGB CONC 33.8 g/dL (33.0-36.5); MEAN CORPUSCULAR VOLUME 88.2 FL (78-98); MEAN PLATELET VOLUME 7.2 FL (7.4-10.4); MONOCYTES # (AUTO) 0.4 X10'3 (0-0.9); MONOCYTES % (AUTO) 4.8 % (2-12); NEUTROPHILS # (AUTO) 6.4 X10'3 (1.8-7.7); NEUTROPHILS % (AUTO) 70.8 % (42-75); NITRITES, URINE NEGATIVE (Neg); OCCULT BLOOD,URINE NEGATIVE (Neg); PLATELET COUNT 345 X10'3 (140-440); PROTEIN,URINE NEGATIVE (Neg); RED BLOOD COUNT 4.75 X10'6 (4.20-5.60); RED CELL DISTRIBUTION WIDTH 12.6 % (11.5-14.5); UROBILINOGEN,URINE 0.2 E.U/dL (0.2-1.0)
[2020-06-01 12:32] LABS: UA COLLECTION TYPE NON-SPECIFIED
[2020-06-01 12:33] LABS: BACTERIA,URINE FEW /HPF (Neg); MUCUS STRANDS MANY /LPF (Neg); RBC,URINE 0-2 /HPF (0-2); SQUAMOUS EPITHELIAL CELL,UR MANY /LPF (FEW); WBC,URINE 0-4 /HPF (0-4)
[2020-06-01 12:50] LABS: ALANINE AMINOTRANSFERASE 19 U/L (12-78); ALBUMIN 4.6 G/DL (3.4-5.0); ALBUMIN/GLOBULIN RATIO 1.2 (1.1-1.5); ALKALINE PHOSPHATASE 54 IU/L (20-180); ANION GAP 10 (8-16); ASPARTATE AMINO TRANSFERASE 11 U/L (10-37); BILIRUBIN,TOTAL 0.9 MG/DL (0.1-1.0); BLOOD UREA NITROGEN 11 MG/DL (7-18); BUN/CREATININE RATIO 12.1 (6.6-38.0); CALCIUM 9.5 MG/DL (8.5-10.1); CHLORIDE 103 MMOL/L (99-107); CHOL/HDL RATIO 2.7 (0.00-4.99); CHOLESTEROL 117 MG/DL (0-200); CREATININE 0.91 MG/DL (0.40-0.90); GLUCOSE 77 MG/DL (70-104); HDL CHOLESTEROL 44 MG/DL (35-60); LDL CHOLESTEROL 68 MG/DL (50-100); POTASSIUM 3.4 MMOL/L (3.5-5.1); SODIUM 140 MMOL/L (135-145); TOTAL CARBON DIOXIDE 27.3 MMOL/L (24-32); TOTAL PROTEIN 8.3 G/DL (6.4-8.2); TRIGLYCERIDES 46 MG/DL (20-135); eGFR 79 ML/MIN
== END 2020-06-01 23:59 | disposition home or self-care (01) ==
LOC: LAB 11:55
PROVIDERS: ATTEND Family Medicine
DX: Z00.01 Encounter for general adult medical examination with abnormal findings (principal)
CPT/HCPCS: 36415; 80053; 80061; 81001; 84439; 84443; 85025

== ENCOUNTER 2020-06-27 18:10 | Emergency (ER) | payer BC ==
[~2020-06-27] VITALS: Ht 162.6 cm; Wt 54.5 kg
[2020-06-27 18:46] LABS: BASOPHILS % (AUTO) 0.6 % (0-1); EOSINOPHILS # (AUTO) 0.2 X10'3 (0-0.9); EOSINOPHILS % (AUTO) 2.9 % (0-6); HEMATOCRIT 41.2 % (35.0-45.0); HEMOGLOBIN 13.7 g/dl (12.0-16.0); LYMPHOCYTES # (AUTO) 1.8 X10'3 (1.1-4.8); LYMPHOCYTES % (AUTO) 27.4 % (21-51); MEAN CORPUSCULAR HEMOGLOBIN 29.8 PG (27.0-31.0); MEAN CORPUSCULAR HGB CONC 33.3 g/dL (33.0-36.5); MEAN CORPUSCULAR VOLUME 89.4 FL (78-98); MEAN PLATELET VOLUME 7.4 FL (7.4-10.4); MONOCYTES # (AUTO) 0.5 X10'3 (0-0.9); MONOCYTES % (AUTO) 6.8 % (2-12); NEUTROPHILS # (AUTO) 4.1 X10'3 (1.8-7.7); NEUTROPHILS % (AUTO) 62.3 % (42-75); PLATELET COUNT 317 X10'3 (140-440); RED BLOOD COUNT 4.61 X10'6 (4.20-5.60); RED CELL DISTRIBUTION WIDTH 13.3 % (11.5-14.5); WHITE BLOOD COUNT 6.6 X10'3 (4.5-11.0)
[2020-06-27 18:59] LABS: ALANINE AMINOTRANSFERASE 17 U/L (12-78); ALBUMIN 4.5 G/DL (3.4-5.0); ALBUMIN/GLOBULIN RATIO 1.2 (1.1-1.5); ALKALINE PHOSPHATASE 55 IU/L (46-116); ANION GAP 12 (8-16); ASPARTATE AMINO TRANSFERASE 10 U/L (10-37); BILIRUBIN,TOTAL 0.3 MG/DL (0.1-1.0); BLOOD UREA NITROGEN 12 MG/DL (7-18); BUN/CREATININE RATIO 15.6 (6.6-38.0); CALCIUM 9.1 MG/DL (8.5-10.1); CHLORIDE 104 MMOL/L (99-107); CREATININE 0.77 MG/DL (0.40-0.90); GLUCOSE 107 MG/DL (70-104); POTASSIUM 3.7 MMOL/L (3.5-5.1); SODIUM 142 MMOL/L (135-145); TOTAL CARBON DIOXIDE 26.3 MMOL/L (24-32); TOTAL PROTEIN 8.2 G/DL (6.4-8.2); eGFR > 90 ML/MIN
[2020-06-27] MEDS ORDERED: HYDROcodone/acetaminophen 10/325mg tab PO ONE (19:35)
[2020-06-27] MEDS ORDERED: ketorolac trometh. 30mg/ml inj. IM ONE (19:35)
[2020-06-27 19:40] LABS: CLARITY,URINE CLEAR (Clear); COLOR,URINE YELLOW (Yellow); GLUCOSE, URINE NEGATIVE (Neg); KETONES,URINE NEGATIVE (Neg); LEUKOCYTE ESTERASE ,URINE NEGATIVE (Neg); NITRITES, URINE NEGATIVE (Neg); OCCULT BLOOD,URINE NEGATIVE (Neg); PH,URINE 7.5 (4.8-8.0); PROTEIN,URINE NEGATIVE (Neg)
[2020-06-27 19:42] LABS: UA COLLECTION TYPE STRAIGHT CATH
[2020-06-27 19:52] LABS: URINE HCG NEGATIVE (NEG)
[2020-06-27 21:09] VITALS: BP 141/87
== END 2020-06-27 21:38 | disposition home or self-care (01) ==
LOC: ER 18:10
DX: R10.2 Pelvic and perineal pain (principal); R33.9 Retention of urine, unspecified; R10.32 Left lower quadrant pain; M19.90 Unspecified osteoarthritis, unspecified site; F41.9 Anxiety disorder, unspecified; F32.9 Major depressive disorder, single episode, unspecified; Z86.69 Personal history of other diseases of the nervous system and sense organs; Z88.8 Allergy status to other drugs, medicaments and biological substances
CPT/HCPCS: 36415; 74176; 80053; 81003; 81025; 85025; 96372; 99284; J1885

== ENCOUNTER 2020-06-29 08:47 | Outpatient (CLI) | payer BC | END 2020-06-29 23:59 | disposition home or self-care (01) | LOC: EEVIPCON 08:47 → RAD 08:47 | PROVIDERS: ATTEND Family Medicine | DX: S93.401D Sprain of unspecified ligament of right ankle, subsequent encounter (principal); X58.XXXA Exposure to other specified factors, initial encounter; Y93.89 Activity, other specified; Y92.89 Other specified places as the place of occurrence of the external cause; Y99.8 Other external cause status | CPT/HCPCS: 73721 ==

== ENCOUNTER 2020-07-24 17:41 | Emergency (ER) | payer BC ==
[~2020-07-24] VITALS: Ht 162.6 cm; Wt 5.5 kg
[2020-07-24 17:46] VITALS: BP 127/84
[2020-07-24] MEDS ORDERED: proparacaine 0.5% ophthalmic drops 15ml LEFTEYE ONE (18:30)
[2020-07-24] MEDS ORDERED: erythromycin ophthalmic ointment 1gm tube LEFTEYE ONE (19:05)
[2020-07-24] MEDS ORDERED: ERYT1OIN6 LEFTEYE (19:10)
== END 2020-07-24 19:52 | disposition home or self-care (01) ==
LOC: ER 17:41
DX: S05.02XA Injury of conjunctiva and corneal abrasion without foreign body, left eye, initial encounter (principal); M06.9 Rheumatoid arthritis, unspecified; Z86.61 Personal history of infections of the central nervous system; Z91.018 Allergy to other foods; Z79.899 Other long term (current) drug therapy; W54.8XXA Other contact with dog, initial encounter; Y93.89 Activity, other specified; Y92.89 Other specified places as the place of occurrence of the external cause; Y99.8 Other external cause status
CPT/HCPCS: 99283

== ENCOUNTER 2020-07-30 18:45 | Emergency (ER) | payer BC ==
[~2020-07-30] VITALS: Ht 162.6 cm; Wt 59.0 kg
[~2020-07-30 18:45] MED LIST changes: +ERYT1OIN6 LEFTEYE
[2020-07-30 19:23] LABS: EOSINOPHILS # (AUTO) 0.1 X10'3 (0-0.9); HEMOGLOBIN 13.3 g/dl (12.0-16.0); LYMPHOCYTES # (AUTO) 1.9 X10'3 (1.1-4.8); MONOCYTES # (AUTO) 0.8 X10'3 (0-0.9); MONOCYTES % (AUTO) 7.2 % (2-12)
[2020-07-30] MEDS ORDERED: ketorolac tromethamine 15mg/ml inj. IV ONE (19:25)
[2020-07-30 19:27] LABS: BASOPHILS # (AUTO) 0.1 X10'3 (0-0.2); BASOPHILS % (AUTO) 0.6 % (0-1); EOSINOPHILS % (AUTO) 1.3 % (0-6); HEMATOCRIT 39.7 % (35.0-45.0); LYMPHOCYTES % (AUTO) 16.9 % (21-51); MEAN CORPUSCULAR HEMOGLOBIN 29.8 PG (27.0-31.0); MEAN CORPUSCULAR HGB CONC 33.6 g/dL (33.0-36.5); MEAN CORPUSCULAR VOLUME 88.8 FL (78-98); MEAN PLATELET VOLUME 7.7 FL (7.4-10.4); NEUTROPHILS # (AUTO) 8.5 X10'3 (1.8-7.7); PLATELET COUNT 303 X10'3 (140-440); RED BLOOD COUNT 4.47 X10'6 (4.20-5.60); RED CELL DISTRIBUTION WIDTH 13.1 % (11.5-14.5); WHITE BLOOD COUNT 11.5 X10'3 (4.5-11.0)
[2020-07-30 19:37] LABS: ALANINE AMINOTRANSFERASE 18 U/L (12-78); ALBUMIN 4.3 G/DL (3.4-5.0); ALBUMIN/GLOBULIN RATIO 1.2 (1.1-1.5); ALKALINE PHOSPHATASE 51 IU/L (46-116); ANION GAP 9 (8-16); ASPARTATE AMINO TRANSFERASE 28 U/L (10-37); BILIRUBIN,TOTAL 0.4 MG/DL (0.1-1.0); BLOOD UREA NITROGEN 17 MG/DL (7-18); BUN/CREATININE RATIO 19.3 (6.6-38.0); CALCIUM 9.4 MG/DL (8.5-10.1); CHLORIDE 106 MMOL/L (99-107); CREATININE 0.88 MG/DL (0.40-0.90); GLUCOSE 92 MG/DL (70-104); LIPASE 75 U/L (73-393); POTASSIUM 3.5 MMOL/L (3.5-5.1); SODIUM 142 MMOL/L (135-145); TOTAL CARBON DIOXIDE 26.7 MMOL/L (24-32); TOTAL PROTEIN 7.8 G/DL (6.4-8.2); eGFR 81 ML/MIN
[2020-07-30] MEDS ORDERED: morphine 4 MG/ML inj SYRINge IV ONE (20:35)
[2020-07-30 20:38] LABS: URINE HCG NEGATIVE (NEG)
[2020-07-30 20:45] LABS: CLARITY,URINE CLEAR (Clear); COLOR,URINE YELLOW (Yellow); GLUCOSE, URINE NEGATIVE (Neg); KETONES,URINE NEGATIVE (Neg); LEUKOCYTE ESTERASE ,URINE NEGATIVE (Neg); NITRITES, URINE NEGATIVE (Neg); OCCULT BLOOD,URINE MODERATE (Neg); PH,URINE 6.5 (4.8-8.0); PROTEIN,URINE NEGATIVE (Neg)
[2020-07-30 20:47] LABS: UA COLLECTION TYPE CLN CATCH MIDSTREAM
[2020-07-30 20:48] VITALS: BP 111/74
[2020-07-30 20:52] LABS: BACTERIA,URINE FEW /HPF (Neg); SQUAMOUS EPITHELIAL CELL,UR FEW /LPF (FEW); WBC,URINE 0-4 /HPF (0-4)
== END 2020-07-30 21:42 | disposition home or self-care (01) ==
LOC: ER 18:47 → EEVIPCON 18:47 → ER 21:42
DX: R10.9 Unspecified abdominal pain (principal); R10.2 Pelvic and perineal pain; N93.9 Abnormal uterine and vaginal bleeding, unspecified; R25.2 Cramp and spasm; G43.909 Migraine, unspecified, not intractable, without status migrainosus; M19.90 Unspecified osteoarthritis, unspecified site; M06.9 Rheumatoid arthritis, unspecified; Z79.2 Long term (current) use of antibiotics; Z79.899 Other long term (current) drug therapy; Z91.041 Radiographic dye allergy status
CPT/HCPCS: 36415; 80053; 81001; 81025; 83690; 85025; 96374; 96375; 99284; J1885; J2270

== ENCOUNTER 2020-08-24 13:00 | Outpatient (CLI) | payer BC ==
[~2020-08-24 13:00] MED LIST changes: -ERYT1OIN6 LEFTEYE
[2020-08-26 08:08] LABS: FSH, SERUM 7.3 mIU/mL (.); LUTEINIZING HORMONE 15.5 mIU/mL (.); PROGESTERONE 0.4 ng/mL (.); PROLACTIN 16.3 ng/mL (4.8-23.3); THYROXINE (T4) 8.2 ug/dL (4.5-12.0)
== END 2020-08-24 23:59 | disposition home or self-care (01) ==
LOC: LAB 13:00
PROVIDERS: ATTEND Specialist
DX: N91.2 Amenorrhea, unspecified (principal)
CPT/HCPCS: 36415; 82670; 83001; 83002; 84144; 84146; 84436; 84443; 84480

== ENCOUNTER 2020-10-19 10:35 | Outpatient (CLI) | payer BC | END 2020-10-19 23:59 | disposition home or self-care (01) | LOC: RAD 10:35 | PROVIDERS: ATTEND Family Medicine | DX: M51.27 Other intervertebral disc displacement, lumbosacral region (principal) | CPT/HCPCS: 72148 ==

== ENCOUNTER 2020-11-16 08:12 | Day surgery (SDC) | payer BC ==
[2020-11-09 14:19] LABS: BASOPHILS % (AUTO) 0.4 % (0-1); EOSINOPHILS # (AUTO) 0.1 X10'3 (0-0.9); EOSINOPHILS % (AUTO) 1.6 % (0-6); LYMPHOCYTES # (AUTO) 1.7 X10'3 (1.1-4.8); LYMPHOCYTES % (AUTO) 18.8 % (21-51); MEAN CORPUSCULAR HEMOGLOBIN 30.7 PG (27.0-31.0); MEAN CORPUSCULAR HGB CONC 33.6 g/dL (33.0-36.5); MEAN CORPUSCULAR VOLUME 91.2 FL (78-98); MEAN PLATELET VOLUME 7.6 FL (7.4-10.4); MONOCYTES # (AUTO) 0.4 X10'3 (0-0.9); MONOCYTES % (AUTO) 4.7 % (2-12); NEUTROPHILS # (AUTO) 6.7 X10'3 (1.8-7.7); NEUTROPHILS % (AUTO) 74.5 % (42-75); PRE OP HEMATOCRIT 43.8 % (35.0-45.0); PRE OP HEMOGLOBIN 14.7 g/dL (12.0-16.0); PRE OP PLATELET COUNT 308 X10'3 (140-440); RED CELL DISTRIBUTION WIDTH 12.8 % (11.5-14.5)
[2020-11-09 14:35] LABS: HCG SERUM QL NEGATIVE
[2020-11-09 14:38] LABS: ALBUMIN 4.2 G/DL (3.4-5.0); ALBUMIN/GLOBULIN RATIO 1.1 (1.1-1.5); ALKALINE PHOSPHATASE 46 IU/L (46-116); BLOOD UREA NITROGEN 12 MG/DL (7-18); BUN/CREATININE RATIO 16.7 (6.6-38.0); CALCIUM 9.2 MG/DL (8.5-10.1); CHLORIDE 104 MMOL/L (99-107); CREATININE 0.72 MG/DL (0.40-0.90); PRE OP ALT 17 U/L (30-65); PRE OP ANION GAP 10 (8-16); PRE OP AST 15 U/L (10-37); PRE OP BILIRUB, TOTAL 0.4 MG/DL (0.0-1.0); PRE OP GLUCOSE 91 MG/DL (70-104); PRE OP POTASSIUM 3.4 MMOL/L (3.4-5.1); PRE OP SODIUM 143 MMOL/L (135-145); TOTAL CARBON DIOXIDE 29.2 MMOL/L (24-32); eGFR > 90 ML/MIN
[2020-11-09 14:53] LABS: CLARITY,URINE CLEAR (Clear); COLOR,URINE YELLOW (Yellow); GLUCOSE, URINE NEGATIVE (Neg); KETONES,URINE NEGATIVE (Neg); LEUKOCYTE ESTERASE ,URINE NEGATIVE (Neg); NITRITES, URINE NEGATIVE (Neg); OCCULT BLOOD,URINE NEGATIVE (Neg); PH,URINE 7.5 (4.8-8.0); PROTEIN,URINE NEGATIVE (Neg); UROBILINOGEN,URINE 0.2 E.U/dL (0.2-1.0)
[2020-11-09 15:01] LABS: UA COLLECTION TYPE CLN CATCH MIDSTREAM
[2020-11-16] VITALS (9 sets, daily range): BP systolic 106–120; BP diastolic 58–78
[~2020-11-16] VITALS: Ht 162.6 cm; Wt 59.0 kg
[~2020-11-16 08:12] MED LIST changes: -CETI-1 PO; +ESCI-8 PO; -ETAN25DI2 SQ; -ETAN50PE2 SQ; +ETON1VAG VG; -HYDR-4383 PO; -IBUP-1985 PO; -LANS15CA15 PO; +NAPR-1170 PO; -ONDA4TAB6 PO; -ONDA8TAB9 PO; +OXYB5TAB16 PO; -PHEN-786 PO; -SERT25TA PO; +cefazolin/dext.iso 2gm/100ml IV ONE; +famotidine 20mg tablet PO ONE; +ringers solution, lacted 1,000 ML IV SCH
[2020-11-16] MEDS ORDERED: morphine 4 MG/ML inj SYRINge IV PRN (10:05)
[2020-11-16] MEDS ORDERED: ringers solution, lacted 1,000 ML IV SCH (10:05)
[2020-11-16] MEDS ORDERED: ondansetron/PF 4mg/2ml inj IV PRN (10:05)
[2020-11-16] MEDS ORDERED: proCHLORperazine 10 MG/2 ml inj IV PRN (10:05)
[2020-11-16] MEDS ORDERED: morphine 2 MG/ML inj. syringe IV PRN (10:05)
[2020-11-16] MEDS ORDERED: meperidine/PF 25mg/ml syringe IV PRN ×3 (10:05)
[2020-11-16] MEDS ORDERED: BUPIVAcaine/PF 2.5 mg/ml (0.25%) 30ml vial ONE (10:07)
[2020-11-16] MEDS ORDERED: bacitracin 15gm ointment TP ONE ×2 (10:38→12:45)
[2020-11-16] MEDS ORDERED: sevoflurane 250ml liquid IH ONE (10:50)
[2020-11-16] MEDS ORDERED: propofol 10mg/ml 20ml vial IV ONE (10:50)
[2020-11-16] MEDS ORDERED: LIDOcaine 1%/PF 5ML 10 MG/ML VIAL ONE (10:50)
[2020-11-16] MEDS ORDERED: fentaNYL/PF 50MCG/1 ML 2ML syringe ONE (10:52)
[2020-11-16] MEDS ORDERED: MIDAZolam 1 MG/ML 5ML VIAL ONE (10:52)
[2020-11-16] MEDS ORDERED: ROPIVAcaine 0.5% (5mg/ml) 30ml vial ONE (10:53)
[2020-11-16] MEDS ORDERED: dexamethasone sod phosphate 4mg/ml inj. ONE (11:41)
[2020-11-16] MEDS ORDERED: ondansetron/PF 4mg/2ml inj ONE (11:42)
--- NOTE | 2020-11-16 13:11 | NUR ---
Received from OR via [facility] , accompanied by Anesthesiologist UMER and report given by Anesthesiolgist. PATIENT WITH 20G PIV IN RIGHT UE RUNNING LR AT 100. SPLINT TO RIGHT LE THAT IS CDI. + CAP REFILL AND ALL TOES ARE PWD. VSS. 10L MASK ON WITH 100% SATURATIONS. ON Q NERVE BLOCK PRESENT TO RIGHT LE. Addendum: 11/16/20 at 1324 by Kermit Reece RN, RN Amended: Links added.
[2020-11-16] MEDS ORDERED: ROPIVAcaine 0.2% (10 MG/5 ML) BOLUS INJECTION POPLITEAL PRN (13:15)
[2020-11-16] MEDS ORDERED: ROPIVAcaine 0.2%/PF PUMP/bolus 545 ML POPLITEAL SCH (13:15)
--- NOTE | 2020-11-16 14:21 | NUR ---
ALL DISCHARGE CRITERIA HAS BEEN MET. VSS, PAIN AT A TOLERABLE LEVEL, VOIDING AND ABLE TO SAFELY AMBULATE AND TRANSFER SELF. IV TAKEN OUT WITHOUT ANY COMPLICATIONS. ALL DISCHARGE INSTRUCTIONS COVERED WITH PATIENT AND ALL QUESTIONS ANSWERED. PATIENT TAKEN OUT VIA WHEELCHAIR TO PERSONAL VEHICLE WHERE FAMILY/FRIEND DROVE PATIENT HOME. ON Q EDUCATION PROVIDED. PATIENT VERBALIZED UNDERSTANDING. LITERATURE PROVIDED WELL BANDAIDS. BOYFRIEND PRESENT TO TAKE PATIENT HOME. SANDRA SINGLETARY Addendum: 11/16/20 at 1423 by Kermit Reece RN, RN Amended: Links added.
--- NOTE | 2020-11-16 14:31 | NUR ---
ALL DISCHARGE CRITERIA HAS BEEN MET. VSS, PAIN AT A TOLERABLE LEVEL, VOIDING AND ABLE TO SAFELY AMBULATE AND TRANSFER SELF. IV TAKEN OUT WITHOUT ANY COMPLICATIONS. ALL DISCHARGE INSTRUCTIONS COVERED WITH PATIENT AND ALL QUESTIONS ANSWERED. PATIENT TAKEN OUT VIA WHEELCHAIR TO PERSONAL VEHICLE WHERE FAMILY/FRIEND DROVE PATIENT HOME. BOYFRIEND ASKED QUESTIONS ABOUT ON Q PUMP AND I ANSWERED ALL QUESTIONS- REFERRED HIM TO THE [facility]. PATIENT IN STABLE CONDITION AND HAS NO PAIN Addendum: 11/16/20 at 1437 by Kermit Reece RN, RN Amended: Links added.
== END 2020-11-16 14:31 | disposition home or self-care (01) ==
LOC: PAS 08:12
PROVIDERS: ATTEND Podiatrist Foot & Ankle Surgery
DX: M25.371 Other instability, right ankle (principal); M19.071 Primary osteoarthritis, right ankle and foot; M65.871 Other synovitis and tenosynovitis, right ankle and foot; F32.9 Major depressive disorder, single episode, unspecified; F41.9 Anxiety disorder, unspecified; G89.18 Other acute postprocedural pain; Z79.82 Long term (current) use of aspirin; Z79.899 Other long term (current) drug therapy; Z98.890 Other specified postprocedural states
CPT/HCPCS: 27695; 29895; 36415; 64446; 76942; 80053; 81003; 82948; 84703; 85025; 93005; A6223; C1713; J1100; J2250; J2405; J2704; J2795; J3010; J3490; A4215; A4618; A6253; A6449; J7120

== ENCOUNTER 2021-01-08 13:13 | Emergency (ER) | payer BC ==
[~2021-01-08] VITALS: Ht 162.6 cm; Wt 59.1 kg
[~2021-01-08 13:13] MED LIST changes: -cefazolin/dext.iso 2gm/100ml IV ONE; -famotidine 20mg tablet PO ONE; -ringers solution, lacted 1,000 ML IV SCH
[2021-01-08 13:43] VITALS: BP 108/80
--- NOTE | 2021-01-08 14:14 | NUR ---
Alyson notified + covid
[2021-01-08] MEDS ORDERED: ALBU6.7H9 INH (14:16)
[2021-01-08] MEDS ORDERED: DEXA4TAB67 PO (14:16)
== END 2021-01-08 14:29 | disposition home or self-care (01) ==
LOC: ER 13:14
DX: U07.1 COVID-19 (principal); R51.9 Headache, unspecified; R09.81 Nasal congestion; M54.9 Dorsalgia, unspecified; M19.90 Unspecified osteoarthritis, unspecified site; F41.9 Anxiety disorder, unspecified; F32.9 Major depressive disorder, single episode, unspecified; Z86.69 Personal history of other diseases of the nervous system and sense organs; Z88.8 Allergy status to other drugs, medicaments and biological substances; Z79.899 Other long term (current) drug therapy
CPT/HCPCS: 87635; 99283; C9803; 36415

== ENCOUNTER 2021-04-21 07:40 | Emergency (ER) | payer BC ==
[~2021-04-21] VITALS: Ht 162.6 cm; Wt 59.1 kg
[~2021-04-21 07:40] MED LIST changes: +ALBU6.7H9 INH; +DEXA4TAB67 PO
[2021-04-21 07:49] VITALS: BP 111/66
== END 2021-04-21 08:24 | disposition home or self-care (01) ==
LOC: ER 07:41
DX: R05.9 Cough, unspecified (principal); R09.89 Other specified symptoms and signs involving the circulatory and respiratory systems; Z20.822 Contact with and (suspected) exposure to COVID-19; F41.9 Anxiety disorder, unspecified; F32.9 Major depressive disorder, single episode, unspecified; Z79.899 Other long term (current) drug therapy; Z88.8 Allergy status to other drugs, medicaments and biological substances
CPT/HCPCS: 87635; 99283; C9803

== ENCOUNTER 2021-06-07 03:53 | Emergency (ER) | payer BC ==
[~2021-06-07] VITALS: Ht 162.6 cm; Wt 59.1 kg
[2021-06-07] MEDS ORDERED: LIDOcaine 1% W/epiNEPHrine 1:200,000 10ml vial IJ ONE (04:40)
[2021-06-07] MEDS ORDERED: ketorolac trometh inj. 60 MG/2 ML VIAL IM ONE (04:40)
[2021-06-07] MEDS ORDERED: LIDOcaine 1% W/epiNEPHrine 1:100,000 20ml vial IJ ONE (04:45)
[2021-06-07] MEDS ORDERED: LORA-269 PO (04:53)
--- NOTE | 2021-06-07 06:36 | NUR ---
ER Provider at bedside.
[2021-06-07 08:12] LABS: APPEARANCE,SYNOVIAL FLUID HAZY; COLOR,SYNOVIAL FLUID YELLOW
[2021-06-07 08:13] LABS: SYN RBC 100 /CU MM (0); SYN WBC 3700 /CU MM (0-200)
[2021-06-07 08:18] LABS: SYNOVIAL FLUID CRYSTALS QT MODERATE
[2021-06-07 08:21] LABS: CRYSTAL ID, SYN FLD OTHER
--- NOTE | 2021-06-07 08:27 | NUR ---
Patient resting quietly; family at bedside.
[2021-06-07] MEDS ORDERED: predniSONE 20 mg tablet PO ONE (08:35)
[2021-06-07] MEDS ORDERED: prednisone 10mg tablet PO SCH (08:35)
[2021-06-07] MEDS ORDERED: PRED20TA PO (08:41)
[2021-06-07 09:00] VITALS: BP 118/72
== END 2021-06-07 09:06 | disposition home or self-care (01) ==
LOC: ER 03:53
DX: M25.461 Effusion, right knee (principal); M19.90 Unspecified osteoarthritis, unspecified site; F41.9 Anxiety disorder, unspecified; F32.9 Major depressive disorder, single episode, unspecified; Z86.69 Personal history of other diseases of the nervous system and sense organs; Z88.8 Allergy status to other drugs, medicaments and biological substances; Z79.899 Other long term (current) drug therapy
CPT/HCPCS: 20610; 36415; 87070; 87075; 89051; 89060; 96372; 99283; J1885; J3490; J7512

== ENCOUNTER 2021-06-25 14:42 | Outpatient (CLI) | payer BC ==
[~2021-06-25 14:42] MED LIST changes: +PRED20TA PO
[2021-06-25 15:21] LABS: BASOPHILS % (AUTO) 0.5 % (0-1); EOSINOPHILS # (AUTO) 0.1 X10'3 (0-0.9); EOSINOPHILS % (AUTO) 1.7 % (0-6); HEMATOCRIT 38.2 % (35.0-45.0); HEMOGLOBIN 12.8 g/dl (12.0-16.0); LYMPHOCYTES # (AUTO) 1.5 X10'3 (1.1-4.8); MEAN CORPUSCULAR HEMOGLOBIN 29.6 PG (27.0-31.0); MEAN CORPUSCULAR HGB CONC 33.4 g/dL (33.0-36.5); MEAN CORPUSCULAR VOLUME 88.6 FL (78-98); MEAN PLATELET VOLUME 7.1 FL (7.4-10.4); MONOCYTES # (AUTO) 0.5 X10'3 (0-0.9); MONOCYTES % (AUTO) 7.2 % (2-12); NEUTROPHILS # (AUTO) 4.5 X10'3 (1.8-7.7); NEUTROPHILS % (AUTO) 67.6 % (42-75); PLATELET COUNT 257 X10'3 (140-440); RED BLOOD COUNT 4.31 X10'6 (4.20-5.60); RED CELL DISTRIBUTION WIDTH 13.1 % (11.5-14.5); WHITE BLOOD COUNT 6.6 X10'3 (4.5-11.0)
[2021-06-25 15:34] LABS: ALANINE AMINOTRANSFERASE 13 U/L (12-78); ALBUMIN 3.6 G/DL (3.4-5.0); ALKALINE PHOSPHATASE 43 IU/L (46-116); ANION GAP 7 (8-16); ASPARTATE AMINO TRANSFERASE 11 U/L (10-37); BILIRUBIN,TOTAL 0.3 MG/DL (0.1-1.0); BLOOD UREA NITROGEN 13 MG/DL (7-18); BUN/CREATININE RATIO 19.7 (6.6-38.0); C-REACTIVE PROTEIN 1.34 MG/DL (0.0-0.5); CALCIUM 8.7 MG/DL (8.5-10.1); CHLORIDE 107 MMOL/L (99-107); CREATININE 0.66 MG/DL (0.40-0.90); GLUCOSE 103 MG/DL (70-104); POTASSIUM 4.1 MMOL/L (3.5-5.1); SODIUM 141 MMOL/L (135-145); TOTAL PROTEIN 7.3 G/DL (6.4-8.2); eGFR > 90 ML/MIN
== END 2021-06-25 23:59 | disposition home or self-care (01) ==
LOC: LAB 14:42
PROVIDERS: ATTEND Internal Medicine Rheumatology
DX: M25.462 Effusion, left knee (principal); M08.462 Pauciarticular juvenile rheumatoid arthritis, left knee
CPT/HCPCS: 36415; 73560; 80053; 85025; 85651; 86140

== ENCOUNTER 2021-08-06 12:32 | Outpatient (CLI) | payer BC ==
[~2021-08-06 12:32] MED LIST changes: -PRED20TA PO
== END 2021-08-06 23:59 | disposition home or self-care (01) ==
LOC: RAD 12:32
PROVIDERS: ATTEND Family Medicine
DX: M71.331 Other bursal cyst, right wrist (principal); M25.531 Pain in right wrist; R29.898 Other symptoms and signs involving the musculoskeletal system
CPT/HCPCS: 73221

== ENCOUNTER 2021-10-07 17:10 | Emergency (ER) | payer BC ==
[~2021-10-07] VITALS: Ht 162.6 cm; Wt 63.6 kg
[2021-10-07 17:30] VITALS: BP 130/83
[2021-10-07 17:37] LABS: BASOPHILS % (AUTO) 0.6 % (0-1); EOSINOPHILS # (AUTO) 0.1 X10'3 (0-0.9); EOSINOPHILS % (AUTO) 1.2 % (0-6); HEMATOCRIT 40.2 % (35.0-45.0); HEMOGLOBIN 13.6 g/dl (12.0-16.0); LYMPHOCYTES # (AUTO) 1.9 X10'3 (1.1-4.8); LYMPHOCYTES % (AUTO) 24.9 % (21-51); MEAN CORPUSCULAR HEMOGLOBIN 29.4 PG (27.0-31.0); MEAN CORPUSCULAR HGB CONC 33.8 g/dL (33.0-36.5); MEAN CORPUSCULAR VOLUME 87.2 FL (78-98); MEAN PLATELET VOLUME 7.1 FL (7.4-10.4); MONOCYTES # (AUTO) 0.4 X10'3 (0-0.9); MONOCYTES % (AUTO) 5.6 % (2-12); NEUTROPHILS # (AUTO) 5.3 X10'3 (1.8-7.7); NEUTROPHILS % (AUTO) 67.7 % (42-75); PLATELET COUNT 321 X10'3 (140-440); RED BLOOD COUNT 4.61 X10'6 (4.20-5.60); RED CELL DISTRIBUTION WIDTH 12.5 % (11.5-14.5); WHITE BLOOD COUNT 7.8 X10'3 (4.5-11.0)
[2021-10-07 17:52] LABS: ALANINE AMINOTRANSFERASE 17 U/L (12-78); ALBUMIN 4.5 G/DL (3.4-5.0); ALBUMIN/GLOBULIN RATIO 1.2 (1.1-1.5); ALKALINE PHOSPHATASE 40 IU/L (46-116); ANION GAP 8 (8-16); ASPARTATE AMINO TRANSFERASE 14 U/L (10-37); BILIRUBIN,TOTAL 0.7 MG/DL (0.1-1.0); BLOOD UREA NITROGEN 13 MG/DL (7-18); BUN/CREATININE RATIO 15.7 (6.6-38.0); CALCIUM 9.1 MG/DL (8.5-10.1); CHLORIDE 104 MMOL/L (99-107); CREATININE 0.83 MG/DL (0.40-0.90); GLUCOSE 82 MG/DL (70-104); LIPASE 91 U/L (73-393); POTASSIUM 3.7 MMOL/L (3.5-5.1); SODIUM 139 MMOL/L (135-145); TOTAL CARBON DIOXIDE 26.8 MMOL/L (24-32); TOTAL PROTEIN 8.2 G/DL (6.4-8.2); eGFR 86 ML/MIN
[2021-10-07 18:22] LABS: CLARITY,URINE SLIGHTLY CLOUDY (Clear); COLOR,URINE YELLOW (Yellow); GLUCOSE, URINE NEGATIVE (Neg); KETONES,URINE 15 mg/dl (Neg); LEUKOCYTE ESTERASE ,URINE NEGATIVE (Neg); NITRITES, URINE NEGATIVE (Neg); OCCULT BLOOD,URINE NEGATIVE (Neg); PH,URINE 6.5 (4.8-8.0); PROTEIN,URINE NEGATIVE (Neg); UROBILINOGEN,URINE 0.2 E.U/dL (0.2-1.0)
[2021-10-07 18:23] LABS: UA COLLECTION TYPE CLN CATCH MIDSTREAM; URINE HCG NEGATIVE (NEG)
[2021-10-07 18:27] LABS: BACTERIA,URINE 1+ /HPF (Neg); MUCUS STRANDS MANY /LPF (Neg); RBC,URINE 0-2 /HPF (0-2); SQUAMOUS EPITHELIAL CELL,UR MODERATE /LPF (FEW); WBC,URINE 0-4 /HPF (0-4)
[2021-10-07] MEDS ORDERED: iohexol 300mg/ml 100ml inj. ONE (18:56)
== END 2021-10-07 20:26 | disposition home or self-care (01) ==
LOC: ER 17:11
DX: R10.31 Right lower quadrant pain (principal); R11.2 Nausea with vomiting, unspecified; R50.9 Fever, unspecified; R19.7 Diarrhea, unspecified; M19.90 Unspecified osteoarthritis, unspecified site; M06.9 Rheumatoid arthritis, unspecified; Z91.041 Radiographic dye allergy status; Z79.899 Other long term (current) drug therapy
CPT/HCPCS: 36415; 74177; 80053; 81001; 81025; 83690; 85025; 99285; Q9967

== ENCOUNTER 2021-10-23 11:59 | Outpatient (CLI) | payer BC | END 2021-10-23 23:59 | disposition home or self-care (01) | LOC: RAD 11:59 | PROVIDERS: ATTEND Family Medicine | DX: M54.2 Cervicalgia (principal); M25.531 Pain in right wrist; F41.9 Anxiety disorder, unspecified | CPT/HCPCS: 72141 ==

== ENCOUNTER 2022-02-03 08:19 | Outpatient (CLI) | payer BC ==
[2022-02-03] MEDS ORDERED: GADOTERATE MEGLUMINE 10 MMOL/20 ML SYRINGE IV ONE (10:34)
== END 2022-02-03 23:59 | disposition home or self-care (01) ==
LOC: RAD 08:19
PROVIDERS: ATTEND Physician Assistant
DX: R29.898 Other symptoms and signs involving the musculoskeletal system (principal)
CPT/HCPCS: 70553; A9575

== ENCOUNTER 2022-05-01 08:15 | Outpatient (CLI) | payer BC ==
[~2022-05-01 08:15] MED LIST changes: +ALBU6.7H14 INH; -ALBU6.7H9 INH
[2022-05-01 09:00] LABS: BASOPHILS % (AUTO) 0.3 % (0-1); EOSINOPHILS # (AUTO) 0.1 X10'3 (0-0.9); EOSINOPHILS % (AUTO) 2.2 % (0-6); HEMATOCRIT 38.8 % (35.0-45.0); HEMOGLOBIN 13.4 g/dl (12.0-16.0); LYMPHOCYTES # (AUTO) 1.5 X10'3 (1.1-4.8); LYMPHOCYTES % (AUTO) 25.9 % (21-51); MEAN CORPUSCULAR HEMOGLOBIN 29.9 PG (27.0-31.0); MEAN CORPUSCULAR HGB CONC 34.5 g/dL (33.0-36.5); MEAN CORPUSCULAR VOLUME 86.7 FL (78-98); MONOCYTES # (AUTO) 0.3 X10'3 (0-0.9); MONOCYTES % (AUTO) 5.9 % (2-12); NEUTROPHILS # (AUTO) 3.7 X10'3 (1.8-7.7); NEUTROPHILS % (AUTO) 65.7 % (42-75); PLATELET COUNT 304 X10'3 (140-440); RED BLOOD COUNT 4.48 X10'6 (4.20-5.60); RED CELL DISTRIBUTION WIDTH 13.1 % (11.5-14.5); WHITE BLOOD COUNT 5.6 X10'3 (4.5-11.0)
[2022-05-01 09:09] LABS: ALANINE AMINOTRANSFERASE 20 U/L (12-78); ALBUMIN 4.1 G/DL (3.4-5.0); ALBUMIN/GLOBULIN RATIO 1.1 (1.1-1.5); ALKALINE PHOSPHATASE 47 IU/L (46-116); ANION GAP 10 (8-16); ASPARTATE AMINO TRANSFERASE 18 U/L (10-37); BILIRUBIN,TOTAL 0.7 MG/DL (0.1-1.0); BLOOD UREA NITROGEN 14 MG/DL (7-18); BUN/CREATININE RATIO 20.6 (6.6-38.0); CALCIUM 9.4 MG/DL (8.5-10.1); CHLORIDE 105 MMOL/L (99-107); CREATININE 0.68 MG/DL (0.40-0.90); GLUCOSE 99 MG/DL (70-104); POTASSIUM 3.8 MMOL/L (3.5-5.1); SODIUM 142 MMOL/L (135-145); TOTAL PROTEIN 7.8 G/DL (6.4-8.2); eGFR > 90 ML/MIN
== END 2022-05-01 23:59 | disposition home or self-care (01) ==
LOC: LAB 08:15
PROVIDERS: ATTEND Internal Medicine Rheumatology
DX: M08.462 Pauciarticular juvenile rheumatoid arthritis, left knee (principal)
CPT/HCPCS: 36415; 80053; 85025; 85651; 86480

== ENCOUNTER 2022-09-18 16:12 | Emergency (ER) | payer BC ==
[~2022-09-18] VITALS: Ht 162.6 cm; Wt 73.4 kg
[2022-09-18 16:15] VITALS: BP 146/80
[2022-09-18] MEDS ORDERED: PHEN-824 PO (16:24)
[2022-09-18] MEDS ORDERED: CEPH250T PO (16:24)
[2022-09-18 16:50] LABS: URINE HCG NEGATIVE (NEG)
[2022-09-18 16:53] LABS: CLARITY,URINE SLIGHTLY CLOUDY (Clear); COLOR,URINE YELLOW (Yellow); GLUCOSE, URINE NEGATIVE (Neg); KETONES,URINE NEGATIVE (Neg); LEUKOCYTE ESTERASE ,URINE TRACE (Neg); NITRITES, URINE NEGATIVE (Neg); OCCULT BLOOD,URINE NEGATIVE (Neg); PROTEIN,URINE NEGATIVE (Neg); UROBILINOGEN,URINE 0.2 E.U/dL (0.2-1.0)
[2022-09-18 16:54] LABS: UA COLLECTION TYPE CLN CATCH MIDSTREAM
[2022-09-18 16:59] LABS: RBC,URINE NONE SEEN /HPF (0-2)
[2022-09-18 17:01] LABS: AMORPHOUS URATES 2+; BACTERIA,URINE 1+ /HPF (Neg); SQUAMOUS EPITHELIAL CELL,UR MANY /LPF (FEW); TRANSITIONAL EPI CELLS,URINE FEW /HPF
== END 2022-09-18 16:35 | disposition home or self-care (01) ==
LOC: ER 16:13
DX: R30.0 Dysuria (principal); F31.9 Bipolar disorder, unspecified; Z88.8 Allergy status to other drugs, medicaments and biological substances; Z79.899 Other long term (current) drug therapy
CPT/HCPCS: 81001; 81025; 99283

== ENCOUNTER 2023-02-26 12:23 | Emergency (ER) | payer BC ==
[~2023-02-26] VITALS: Ht 162.6 cm; Wt 72.7 kg
[~2023-02-26 12:23] MED LIST changes: -ETON1VAG VG; +ETON1VAG14 VG; +PHEN-824 PO
[2023-02-26 12:44] VITALS: TEMP 98.1
[2023-02-26 12:55] LABS: BASOPHILS % (AUTO) 0.2 % (0-1); EOSINOPHILS # (AUTO) 0.1 X10'3 (0-0.9); HEMATOCRIT 38.2 % (35.0-45.0); HEMOGLOBIN 12.7 g/dl (12.0-16.0); LYMPHOCYTES # (AUTO) 2.2 X10'3 (1.1-4.8); LYMPHOCYTES % (AUTO) 20.1 % (21-51); MEAN CORPUSCULAR HEMOGLOBIN 29.6 PG (27.0-31.0); MEAN CORPUSCULAR HGB CONC 33.4 g/dL (33.0-36.5); MEAN CORPUSCULAR VOLUME 88.7 FL (78-98); MEAN PLATELET VOLUME 7.1 FL (7.4-10.4); MONOCYTES # (AUTO) 0.7 X10'3 (0-0.9); MONOCYTES % (AUTO) 6.1 % (2-12); NEUTROPHILS % (AUTO) 72.6 % (42-75); PLATELET COUNT 266 X10'3 (140-440); RED CELL DISTRIBUTION WIDTH 13.2 % (11.5-14.5)
[2023-02-26 13:18] LABS: ALANINE AMINOTRANSFERASE 21 U/L (12-78); ALBUMIN 3.3 G/DL (3.4-5.0); ALBUMIN/GLOBULIN RATIO 0.8 (1.1-1.5); ALKALINE PHOSPHATASE 45 IU/L (46-116); ANION GAP 9 (8-16); ASPARTATE AMINO TRANSFERASE 18 U/L (10-37); BILIRUBIN,TOTAL 0.4 MG/DL (0.1-1.0); BLOOD UREA NITROGEN 6 MG/DL (7-18); BUN/CREATININE RATIO 11.5 (10.0-20.0); CALCIUM 9.1 MG/DL (8.5-10.1); CHLORIDE 103 MMOL/L (99-107); CREATININE 0.52 MG/DL (0.40-0.90); GLUCOSE 78 MG/DL (70-104); LIPASE < 50 U/L (73-393); POTASSIUM 3.6 MMOL/L (3.5-5.1); PRO BRAIN NATRIURETIC PEPTIDE 108 PG/ML (0-125); SODIUM 136 MMOL/L (135-145); TOTAL PROTEIN 7.3 G/DL (6.4-8.2); eCRCL 145 ML/MIN; eGFR > 90 ML/MIN
[2023-02-26 14:22] LABS: BILIRUBIN,URINE NEGATIVE (Neg); CLARITY,URINE CLEAR (Clear); COLOR,URINE YELLOW (Yellow); GLUCOSE, URINE NEGATIVE (Neg); KETONES,URINE TRACE mg/dl (Neg); LEUKOCYTE ESTERASE ,URINE NEGATIVE (Neg); NITRITES, URINE NEGATIVE (Neg); OCCULT BLOOD,URINE NEGATIVE (Neg); PROTEIN,URINE NEGATIVE (Neg); URINE HCG POSITIVE (NEG); UROBILINOGEN,URINE 0.2 E.U/dL (0.2-1.0)
[2023-02-26 14:26] LABS: UA COLLECTION TYPE CLN CATCH MIDSTREAM
[2023-02-26 21:40] VITALS: BP 119/77; PULSE 90; RESP 18; O2SAT 98
== END 2023-02-26 21:44 | disposition home or self-care (01) ==
LOC: ER 12:23
DX: O99.342 Other mental disorders complicating pregnancy, second trimester (principal); Z20.822 Contact with and (suspected) exposure to COVID-19; Z3A.17 17 weeks gestation of pregnancy; O26.892 Other specified pregnancy related conditions, second trimester; R07.89 Other chest pain; M19.90 Unspecified osteoarthritis, unspecified site; Z91.041 Radiographic dye allergy status; Z79.899 Other long term (current) drug therapy
CPT/HCPCS: 36415; 80053; 81003; 81025; 83690; 83880; 84484; 85025; 87811; 93005; 99285

== ENCOUNTER → 2023-03-06 | Outpatient (CLI) | payer BC | END | disposition home or self-care (01) | LOC: RAD 11:18 | PROVIDERS: ATTEND Physician Assistant | DX: K80.20 Calculus of gallbladder without cholecystitis without obstruction (principal); R10.11 Right upper quadrant pain | CPT/HCPCS: 76700 ==

== ENCOUNTER 2023-08-03 01:24 | Emergency (ER) | payer BC ==
[~2023-08-03] VITALS: Ht 162.6 cm; Wt 96.2 kg
[2023-08-03] VITALS (13 sets, daily range): BP systolic 117–139; BP diastolic 81–90; PULSE 77–105; RESP 16–18; TEMP 98–98.9; O2SAT 99
[~2023-08-03 01:24] MED LIST changes: -OXYB5TAB16 PO; +OXYB5TAB21 PO
[2023-08-03] MEDS: magnesium 2GM in 50ml NS 50 ML IV ONE (02:16)
[2023-08-03 02:27] LABS: BASOPHILS # (AUTO) 0.1 X10'3 (0-0.2); BASOPHILS % (AUTO) 0.3 % (0-1); EOSINOPHILS # (AUTO) 0.6 X10'3 (0-0.9); EOSINOPHILS % (AUTO) 3.8 % (0-6); LYMPHOCYTES # (AUTO) 2.8 X10'3 (1.1-4.8); LYMPHOCYTES % (AUTO) 18.3 % (21-51); MEAN CORPUSCULAR HEMOGLOBIN 24.2 PG (27.0-31.0); MEAN CORPUSCULAR HGB CONC 30.4 g/dL (33.0-36.5); MEAN CORPUSCULAR VOLUME 79.4 FL (78-98); MEAN PLATELET VOLUME 7.2 FL (7.4-10.4); MONOCYTES # (AUTO) 0.7 X10'3 (0-0.9); MONOCYTES % (AUTO) 4.4 % (2-12); NEUTROPHILS # (AUTO) 11.3 X10'3 (1.8-7.7); NEUTROPHILS % (AUTO) 73.2 % (42-75); PLATELET COUNT 373 X10'3 (140-440); RED BLOOD COUNT 2.53 X10'6 (4.20-5.60); RED CELL DISTRIBUTION WIDTH 16.9 % (11.5-14.5); WHITE BLOOD COUNT 15.5 X10'3 (4.5-11.0)
[2023-08-03 02:34] LABS: HEMATOCRIT 20.1 % (35.0-45.0); HEMOGLOBIN 6.1 g/dl (12.0-16.0)
[2023-08-03 02:47] LABS: PROTHROMBIN TIME 9.1 SECONDS (9.0-12.0)
[2023-08-03 02:56] LABS: INR 0.9 INR
[2023-08-03 03:34] LABS: BILIRUBIN,URINE NEGATIVE (Neg); CLARITY,URINE CLOUDY (Clear); COLOR,URINE STRAW (Yellow); GLUCOSE, URINE NEGATIVE (Neg); KETONES,URINE NEGATIVE (Neg); LEUKOCYTE ESTERASE ,URINE SMALL (Neg); NITRITES, URINE NEGATIVE (Neg); OCCULT BLOOD,URINE LARGE (Neg); PROTEIN,URINE NEGATIVE (Neg); UROBILINOGEN,URINE 0.2 E.U/dL (0.2-1.0)
[2023-08-03 03:41] LABS: UA COLLECTION TYPE CLN CATCH MIDSTREAM
[2023-08-03 03:42] LABS: RBC,URINE TNTC /HPF (0-2); SQUAMOUS EPITHELIAL CELL,UR MANY /LPF (FEW)
[2023-08-03 03:43] LABS: ALANINE AMINOTRANSFERASE 41 U/L (12-78); ALBUMIN 2.2 G/DL (3.4-5.0); ALBUMIN/GLOBULIN RATIO 0.5 (1.1-1.5); ALKALINE PHOSPHATASE 274 IU/L (46-116); ANION GAP 10 (8-16); ASPARTATE AMINO TRANSFERASE 71 U/L (10-37); BILIRUBIN,TOTAL 0.2 MG/DL (0.1-1.0); BLOOD UREA NITROGEN 9 MG/DL (7-18); CALCIUM 7.8 MG/DL (8.5-10.1); CHLORIDE 109 MMOL/L (99-107); CREATININE 0.75 MG/DL (0.40-0.90); GLUCOSE 80 MG/DL (70-104); MAGNESIUM 1.8 MG/DL (1.5-2.4); POTASSIUM 4.3 MMOL/L (3.5-5.1); SODIUM 143 MMOL/L (135-145); TOTAL CARBON DIOXIDE 24.4 MMOL/L (24-32); TOTAL PROTEIN 6.3 G/DL (6.4-8.2); eCRCL 100 ML/MIN; eGFR > 90 ML/MIN
[2023-08-03 03:45] LABS: WBC CLUMPS,URINE FEW /HPF (NEGATIVE)
[2023-08-03 03:46] LABS: BACTERIA,URINE 2+ /HPF (Neg)
[2023-08-03 03:50] LABS: ANISOCYTOSIS 1+; PLATELET ESTIMATE NORMAL; TOTAL CELLS COUNTED 100
[2023-08-03 03:56] LABS: ROULEAUX 1+
[2023-08-03 03:57] LABS: HYPOCHROMASIA 1+; MICROCYTOSIS 1+; SMUDGE CELLS FEW
[2023-08-03] MEDS ORDERED: ibuprofen tablet 400 MG TABLET PO ONE (05:25)
[2023-08-03] MEDS: ibuprofen 200mg tablet PO ONE (05:36)
[2023-08-03 07:57] LABS: HEMATOCRIT 22.1 % (35.0-45.0); MEAN CORPUSCULAR HEMOGLOBIN 25.9 PG (27.0-31.0); MEAN CORPUSCULAR HGB CONC 31.8 g/dL (33.0-36.5); MEAN CORPUSCULAR VOLUME 81.5 FL (78-98); MEAN PLATELET VOLUME 7.1 FL (7.4-10.4); PLATELET COUNT 279 X10'3 (140-440); RED BLOOD COUNT 2.71 X10'6 (4.20-5.60); RED CELL DISTRIBUTION WIDTH 16.9 % (11.5-14.5); WHITE BLOOD COUNT 13.4 X10'3 (4.5-11.0)
[2023-08-03] MEDS: CefTRIAXone/D5W-Rocephin 1gm 50 ML IV ONE (09:41)
[2023-08-03] MEDS ORDERED: CEPH-585 PO (12:04)
[2023-08-03] MEDS ORDERED: FLUC150T22 PO (13:40)
== END 2023-08-03 18:50 | disposition home or self-care (01) ==
LOC: ER 01:24
DX: O90.81 Anemia of the puerperium (principal); O16.5 Unspecified maternal hypertension, complicating the puerperium; O86.29 Other urinary tract infection following delivery; N39.0 Urinary tract infection, site not specified
CPT/HCPCS: 36415; 36430; 71045; 80053; 81001; 83735; 84550; 85007; 85025; 85027; 85610; 86885; 86900; 86901; 86920; 93005; 96365; 96375; 99285; J0696; J3475; J7040; J7050; P9016; A6258

== ENCOUNTER 2024-05-26 16:09 | Emergency (ER) | payer BC ==
[~2024-05-26] VITALS: Ht 162.6 cm; Wt 76.8 kg
[2024-05-26 16:13] VITALS: BP 140/98; PULSE 97; RESP 18; TEMP 97.5; O2SAT 99
[2024-05-26 17:34] LABS: BASOPHILS % (AUTO) 0.4 % (0-1); EOSINOPHILS # (AUTO) 0.1 X10'3 (0-0.9); EOSINOPHILS % (AUTO) 1.3 % (0-6); HEMATOCRIT 39.4 % (35.0-45.0); HEMOGLOBIN 13.4 g/dl (12.0-16.0); LYMPHOCYTES # (AUTO) 1.9 X10'3 (1.1-4.8); LYMPHOCYTES % (AUTO) 19.1 % (21-51); MEAN CORPUSCULAR HEMOGLOBIN 29.8 PG (27.0-31.0); MEAN CORPUSCULAR HGB CONC 34.1 g/dL (33.0-36.5); MEAN CORPUSCULAR VOLUME 87.3 FL (78-98); MEAN PLATELET VOLUME 7.3 FL (7.4-10.4); MONOCYTES # (AUTO) 0.5 X10'3 (0-0.9); MONOCYTES % (AUTO) 5.3 % (2-12); NEUTROPHILS # (AUTO) 7.4 X10'3 (1.8-7.7); NEUTROPHILS % (AUTO) 73.9 % (42-75); PLATELET COUNT 327 X10'3 (140-440); RED BLOOD COUNT 4.51 X10'6 (4.20-5.60); RED CELL DISTRIBUTION WIDTH 13.3 % (11.5-14.5); WHITE BLOOD COUNT 10.1 X10'3 (4.5-11.0)
[2024-05-26 17:46] LABS: ALANINE AMINOTRANSFERASE 17 U/L (12-78); ALBUMIN 4.1 G/DL (3.4-5.0); ALKALINE PHOSPHATASE 60 IU/L (46-116); ANION GAP 10 (8-16); ASPARTATE AMINO TRANSFERASE 17 U/L (10-37); BILIRUBIN,TOTAL 0.3 MG/DL (0.1-1.0); BLOOD UREA NITROGEN 10 MG/DL (7-18); BUN/CREATININE RATIO 15.4 (10.0-20.0); CALCIUM 9.1 MG/DL (8.5-10.1); CHLORIDE 104 MMOL/L (99-107); CREATININE 0.65 MG/DL (0.40-0.90); GLUCOSE 95 MG/DL (70-104); POTASSIUM 3.5 MMOL/L (3.5-5.1); SODIUM 140 MMOL/L (135-145); TOTAL CARBON DIOXIDE 25.7 MMOL/L (24-32); TOTAL PROTEIN 8.1 G/DL (6.4-8.2); eCRCL 115 ML/MIN; eGFR > 90 ML/MIN
[2024-05-26 18:04] LABS: BETA HCG,QUANTITATIVE < 1.0 mIU/ml
== END 2024-05-26 18:17 | disposition home or self-care (01) ==
LOC: ER 16:10
DX: O02.1 Missed abortion (principal); O99.341 Other mental disorders complicating pregnancy, first trimester; M19.90 Unspecified osteoarthritis, unspecified site; F41.9 Anxiety disorder, unspecified; F32.A Depression, unspecified; Z98.890 Other specified postprocedural states; Z91.040 Latex allergy status; Z88.8 Allergy status to other drugs, medicaments and biological substances; Z91.048 Other nonmedicinal substance allergy status; Z79.1 Long term (current) use of non-steroidal anti-inflammatories (NSAID); Z79.899 Other long term (current) drug therapy
CPT/HCPCS: 36415; 80053; 84702; 85025; 86885; 86900; 86901; 99283

== ENCOUNTER 2024-07-01 23:28 | Emergency (ER) | payer BC ==
[~2024-07-01] VITALS: Ht 162.6 cm; Wt 76.8 kg
[2024-07-01 23:33] VITALS: BP 122/78; PULSE 86; RESP 18; TEMP 97.8; O2SAT 99
== END 2024-07-02 01:10 | disposition home or self-care (01) ==
LOC: ER 23:29
DX: S63.502A Unspecified sprain of left wrist, initial encounter (principal); M06.9 Rheumatoid arthritis, unspecified; Z88.6 Allergy status to analgesic agent; Z88.8 Allergy status to other drugs, medicaments and biological substances; Z91.040 Latex allergy status; Z91.041 Radiographic dye allergy status; W22.8XXA Striking against or struck by other objects, initial encounter; Y93.89 Activity, other specified; Y92.89 Other specified places as the place of occurrence of the external cause; Y99.8 Other external cause status
CPT/HCPCS: 29125; 73110; 99283

== ENCOUNTER 2024-08-09 17:29 | Emergency (ER) | payer BC ==
[~2024-08-09] VITALS: Ht 162.6 cm; Wt 72.7 kg
[2024-08-09] MEDS: dexamethasone sod phosphate 10mg/ml inj IM STA (18:56)
[2024-08-09] MEDS: LIDOcaine 1% W/epiNEPHrine 1:100,000 20ml vial IJ ONE (18:58)
[2024-08-09] MEDS ORDERED: PRED20TA PO (19:07)
[2024-08-09] MEDS: LIDOcaine 1.5% w/epinephrine 1:200,000 5ml ampul IJ ONE (19:20)
[2024-08-09 19:22] VITALS: BP 123/72; PULSE 74; RESP 18; TEMP 98.6; O2SAT 99
== END 2024-08-09 19:57 | disposition home or self-care (01) ==
LOC: ER 17:30
DX: M06.861 Other specified rheumatoid arthritis, right knee (principal); M25.461 Effusion, right knee; M25.561 Pain in right knee; F41.9 Anxiety disorder, unspecified; F32.A Depression, unspecified; M19.90 Unspecified osteoarthritis, unspecified site; Z98.890 Other specified postprocedural states; Z91.040 Latex allergy status; Z91.048 Other nonmedicinal substance allergy status; Z79.899 Other long term (current) drug therapy
CPT/HCPCS: 73564; 87015; 87070; 96372; 99284; J1100; J3490; A6449

== ENCOUNTER 2025-03-02 15:54 | Emergency (ER) | payer BC ==
[~2025-03-02] VITALS: Ht 162.6 cm; Wt 90.0 kg
--- NOTE | 2025-03-02 16:09 | ELECTROCARDIOGRAPH REPORT ---
[facility] Test Date: 2025-03-02 Test Time: 16:08:16 Pat Name: SERINA MAY Department: EMERGENCY ROOM Room: Gender: [employer]: : 2000 Requested By: MAHENDRA QUIGLEY Order Number: [id number] Reading MD: Measurements Intervals [place] Rate: 117 P: 65 W[place]: 130 QRS: 67 QRSD: 81 T: 13 QT: 314 QTc: 438 Interpretive Statements Sinus tachycardia Ventricular premature complex Aberrant complex RSR' in V1 or V2, right VCD or RVH Please click the below link to view image of tracing.
--- NOTE | 2025-03-02 16:12 | Physician Documentation ---
History of Present Illness ~ Chief Complaint: Shortness of Breath Stated Complaint: SOB DIZZINESS Time Seen by MD: 18:02 Primary Medical Doctor: FREDY PERRIN This is a 24 year old female who reports that she is 31 weeks . Has had shortness of breath since yesterday, worse today. Denies symptoms of illness to include chills or fever or cough. Reports good baby movement, no vaginal bleeding or discharge, no cramping. She does feel somewhat dizzy, I occasionally feel like I may pass out. Medication Reconciliation Allergies: Coded Allergies: adhesive (Verified Allergy, Unknown, 08/09/24) blue dye (Verified Allergy, Unknown, 08/09/24) chlorhexidine (Verified Allergy, Unknown, 08/09/24) latex (Verified Allergy, Unknown, 08/09/24) red dye (Verified Allergy, Unknown, 08/09/24) Scheduled Albuterol Sulfate (Proventil Hfa), 2 PUFFS INH Q6H Dexamethasone (Decadron), 1 TAB PO Q12H Escitalopram Oxalate (Escitalopram Oxalate), 1 TAB PO HS, (Reported) Etonogestrel/Ethinyl Estradiol (Nuvaring Vaginal Ring), 1 RINGS VG Q28D, (Reported) Naproxen (Naproxen), 1 TAB PO BID, (Reported) Oxybutynin Chloride (Oxybutynin Chloride), 1 TAB PO BID, (Reported) Phenazopyridine HCl (Pyridium), 1 TAB PO Q8H Past Medical History Past Medical History: Seizures, Arthritis, Extremity Fracture, Rheumatoid Arthritis, Anxiety, Depression Past Surgical History: noncontributory, orthopedic surgeries Alcohol Use: None Drug Use: none Lives with: Family Lives In: Home Occupation: employed, student Physical Exam Vital Signs: Temperature: 97.7, Source: Temporal, Heart Rate: 123, Respiratory Rate: 18, BP: 135/85, Pulse Oximetry: 99, Weight: 90.000 Physical Exam General: Alert, no apparent distress. Appears mildly anxious. Neck: Full range of motion. Respiratory: Lungs clear, no respiratory distress. Chest: No accessory muscle use. Cardiovascular: Regular rate and rhythm, no murmurs. Gastrointestinal: Soft, nontender, nondistended. Bowels sounds present. Extremities: Normal range of motion, no deformity. Neurologic: Oriented x4. Psychiatric: Normal mood and affect. Skin: Normal color, warm and dry. No edema, no ecchymosis. Progress Progress Note V/Q scan is unavailable. After reviewing algorithm from up-to-date and discussing risks benefits and alternative including empirical treatment for possible pulmonary embolism, returning in the morning for V/Q scan or watchful waiting patient would prefer CT scan. Risks discussed regarding radiation exposure to both the mother and fetus. Results/Orders Results/Orders Orders - MEHRDAD FELIPE MD Cta Chest Pe (03/02/25 19:35) Completed Orders - MEHRDAD FELIPE MD Cta Chest Pe (03/02/25 19:35) Iohexol 350mg/Ml 100ml (Omnipaque 350mg/ (03/02/25 19:17) Vital Signs 03/02/25 03/02/25 03/02/25 03/02/25 15:58 17:37 18:45 19:27 Temp 97.7 97.7 Pulse 123 86 Resp 18 16 20 16 B/P (MAP) 135/85 120/71 (87) Pulse Ox 99 98 Laboratory Tests Test 03/02/25 16:12 03/02/25 19:12 White Blood Count 13.5 H Red Blood Count 4.01 L Hemoglobin 11.5 L Hematocrit 34.5 L Mean Corpuscular Volume 85.8 Mean Corpuscular Hemoglobin 28.7 Mean Corpuscular Hemoglobin Concent 33.5 Red Cell Distribution Width 13.5 Platelet Count 269 Mean Platelet Volume 7.0 L Neutrophils (%) (Auto) 78.7 H Lymphocytes (%) (Auto) 16.0 L Monocytes (%) (Auto) 4.1 Eosinophils (%) (Auto) 0.9 Basophils (%) (Auto) 0.3 Neutrophils # (Auto) 10.6 H Lymphocytes # (Auto) 2.2 Monocytes # (Auto) 0.6 Eosinophils # (Auto) 0.1 Basophils # (Auto) 0.0 CBC Comment D-Dimer 1.05 H D-Dimer Comment Sodium Level 138 Potassium Level 3.4 L Chloride Level 107 Carbon Dioxide Level 21.0 L Anion Gap 10 Blood Urea Nitrogen 5 L Creatinine 0.48 Estimated GFR/1.73 m2 > 90 BUN/Creatinine Ratio 10.4 Glucose Level 140 H Calcium Level 8.5 Troponin I High Sensitivity 5 5 Pro-B-Type Natriuretic Peptide < 30 Albumin 2.6 L Procalcitonin < 0.05 Chemistry Comments Troponin I High Sens Percent Delta 0 Troponin I Hi Sens Absolute Change 0 Medical Decision Making Findings Patient presented to the emergency room of sudden onset shortness of breath two days ago. Differentials include but are not limited to discomfort of , dyspnea , pulmonary embolism, pneumonia, pericardial effusion, heart failure therefore emergent labs ordered. Elevated D-dimer. After discussing risks benefits alternatives CTA was performed which was negative for pulmonary embolism. Departure Disposition: HOME / SELF CARE / HOMELESS Impression: Primary Impression: Dyspnea Condition: Stable Discharge Instructions: Shortness of Breath, Adult Referrals: NO PRIMARY CARE PROVIDER (PCP) Signature Scribe Signature: x Attestation: The note accurately reflects work and decisions made by me.Mehrdad Felipe MD 03/02/25 20:20 The note accurately reflects work and decisions made by me.Kiersten Reece NP 03/02/25 16:12 KIERSTEN RODGERS NP Mar 02, 2025 16:12 MEHRDAD FELIPE MD Mar 02, 2025 19:17
[2025-03-02 16:34] LABS: MEAN PLATELET VOLUME 7.0 FL (7.4-10.4); RED CELL DISTRIBUTION WIDTH 13.5 % (11.5-14.5)
[2025-03-02 16:54] LABS: CREATININE 0.48 MG/DL (0.40-0.90); PRO BRAIN NATRIURETIC PEPTIDE < 30 PG/ML (0-125); TOTAL CARBON DIOXIDE 21.0 MMOL/L (24-32); eCRCL 155 ML/MIN; eGFR > 90 ML/MIN
[2025-03-02 18:45] VITALS: BP 120/71
--- NOTE | 2025-03-02 20:08 | RADIOLOGY REPORT ---
EXAM: CT CTA CHEST PE W/ IV CONTRAST History: sob, elevated d-d Comparison Study: None TECHNIQUE: A digital riprap placing supervisor image was obtained. During the uneventful, intravenous administration of contrast material, multislice data acquisition was obtained through the chest. 3-D postprocessing is performed by technologist including MIP imaging Radiation Dose : CTDI vol 16.11 mGy, DLP 440.89 mGy*cm. Findings: Lungs: The lungs are clear. Pleura: Unremarkable Heart/Great vessels: No cardiomegaly or pericardial effusion. No pulmonary embolism, aneurysm, or dissection. Mediastinum: Unremarkable Soft tissues/Bones: Unremarkable The partially visualized upper abdomen is within normal limits. Impression: 1. No evidence of a pulmonary embolism, aneurysm, or dissection.
[2025-03-02 20:29] VITALS: PULSE 89; RESP 13; TEMP 97.7; O2SAT 97
== END 2025-03-02 20:31 | disposition home or self-care (01) ==
LOC: ER 15:55
DX: O99.511 Diseases of the respiratory system complicating pregnancy, first trimester (principal); R06.02 Shortness of breath; M06.9 Rheumatoid arthritis, unspecified; Z91.040 Latex allergy status; Z91.048 Other nonmedicinal substance allergy status; Z3A.31 31 weeks gestation of pregnancy
CPT/HCPCS: 36415; 71275; 80048; 83880; 84145; 84484; 85025; 85379; 93005; 99285; Q9967

== ENCOUNTER 2025-05-15 14:07 | Outpatient (CLI) | payer BC ==
[2025-05-15 14:45] LABS: MEAN PLATELET VOLUME 7.0 FL (7.4-10.4); RED CELL DISTRIBUTION WIDTH 15.5 % (11.5-14.5)
[2025-05-15 15:04] LABS: % IRON SATURATION 15 % (11-46)
[2025-05-15 15:46] LABS: CHOL/HDL RATIO 3.2 (0.00-4.99); CREATININE 0.76 MG/DL (0.40-0.90); LDL CHOLESTEROL 95 MG/DL (50-100); TOTAL CARBON DIOXIDE 27.6 MMOL/L (24-32); eGFR > 90 ML/MIN
== END 2025-05-15 23:59 | disposition home or self-care (01) ==
LOC: RAD 14:07
PROVIDERS: ATTEND Physician Assistant
DX: N80.9 Endometriosis, unspecified (principal); D50.9 Iron deficiency anemia, unspecified; Z13.220 Encounter for screening for lipoid disorders; Z13.228 Encounter for screening for other metabolic disorders; Z13.29 Encounter for screening for other suspected endocrine disorder; R73.9 Hyperglycemia, unspecified
CPT/HCPCS: 36415; 80053; 80061; 82728; 83036; 83540; 83550; 84436; 84443; 85025